=== PATIENT | female | born 1965 | race Caucasian/White ===

== ENCOUNTER → 2019-11-25 10:04 | Outpatient (BNVA) | payer MEDICARE, MEDICAID, SELFPAY | PROVIDERS: Family Provider Internal Medicine; PCP Internal Medicine; Visit Provider Specialist | DX: G30.9 Alzheimer's disease, unspecified (principal); F02.81 Dementia in other diseases classified elsewhere, unspecified severity, with behavioral disturbance; Q90.9 Down syndrome, unspecified | CPT/HCPCS: 99213 ==

== ENCOUNTER → 2020-03-25 10:19 | Outpatient (BNVA) | payer MEDICARE, MEDICAID, SELFPAY | PROVIDERS: Family Provider Internal Medicine; PCP Internal Medicine; Visit Provider Specialist | DX: G30.9 Alzheimer's disease, unspecified (principal); F02.80 Dementia in other diseases classified elsewhere, unspecified severity, without behavioral disturbance, psychotic disturbance, mood disturbance, and anxiety; F32.9 Major depressive disorder, single episode, unspecified | CPT/HCPCS: 99214 ==

== ENCOUNTER → 2020-04-20 16:17 | Outpatient (BNVA) | payer MEDICARE, MEDICAID, SELFPAY | PROVIDERS: Family Provider Internal Medicine; PCP Internal Medicine; Visit Provider Nurse Practitioner Family | DX: M79.643 Pain in unspecified hand (principal); S63.236A Subluxation of proximal interphalangeal joint of right little finger, initial encounter; X58.XXXA Exposure to other specified factors, initial encounter | CPT/HCPCS: 73130 ==

== ENCOUNTER 2020-06-22 18:56 | Emergency (ER) | payer MEDICARE, MEDICAID, SELFPAY ==
--- NOTE | 2020-06-22 19:02 | XRR_ITS ---
PROCEDURE INFORMATION: Exam: XR Chest, 1 View Exam date and time: 06/22/2020 7:32 PM Age: 54 years old Clinical indication: Other: Fussy-started after eating lunch; Patient HX: PT has down syndrome, unable to obtain history TECHNIQUE: Imaging protocol: XR of the chest Views: 1 view. COMPARISON: CR Chest 1 [place] [id number] 08/23/2018 1:41 PM FINDINGS: Lungs: Lungs are well aerated without a focal area of consolidation. Pleural space: Unremarkable. No pleural effusion. No pneumothorax. Heart/Mediastinum: The cardiac silhouette appears enlarged, some of which is magnification related to the AP projection. Bones/joints: Unremarkable. Other findings: Tracheostomy XR/XR chest 1V portable [id number] IMPRESSION: Lungs are well aerated without a focal area of consolidation.
[2020-06-22 19:13] VITALS: BP 103/61; PULSE 58; RESP 16; TEMP 36.6; O2SAT 98; BMI 37.8
--- NOTE | 2020-06-22 19:21 | CTR_ITS ---
PROCEDURE INFORMATION: Exam: CT Head Without Contrast Exam date and time: 06/22/2020 7:23 PM Age: 54 years old Clinical indication: Injury or trauma; Fall; Additional info: Fall and hit head TECHNIQUE: Imaging protocol: Computed tomography of the head without contrast. Radiation optimization: All CT scans at this facility use at least one of these dose optimization techniques: automated exposure control; mA and/or kV adjustment per patient size (includes targeted exams where dose is matched to clinical indication); or iterative reconstruction. 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 No hemorrhage or CT evidence of acute infarction is seen. Ventricles: Normal. No ventriculomegaly. Bones/joints: Unremarkable. No acute fracture. Sinuses: Left maxillary sinusitis is noted. Mastoid air cells: Visualized mastoid air cells are well aerated. Soft tissues: Unremarkable. CT/CT head wo con* [id number] IMPRESSION: No acute intracranial abnormality. Left maxillary sinusitis Radiation Dose CTDIVOL = (mGy): DLP = 707.05 (mGy-cm)
--- NOTE | 2020-06-22 19:21 | CTR_ITS ---
PROCEDURE INFORMATION: Exam: CT Cervical Spine Without Contrast Exam date and time: 06/22/2020 7:23 PM Age: 54 years old Clinical indication: Injury or trauma; Fall; Initial encounter; Blunt trauma; Prior surgery; Surgery type: Trach TECHNIQUE: Imaging protocol: Computed tomography images of the cervical spine without contrast. Radiation optimization: All CT scans at this facility use at least one of these dose optimization techniques: automated exposure control; mA and/or kV adjustment per patient size (includes targeted exams where dose is matched to clinical indication); or iterative reconstruction. COMPARISON: CT Cervical Spine wo* [id number] 01/01/2015 5:24 AM RADIATION DOSE METRICS: Total DLP (mGy-cm): 823.25 FINDINGS: Mild to moderate degenerative changes are observed in the cervical spine. Mild canal stenosis is present at C3-C4 and C4-C5 secondary to chronic changes. No cervical spine fracture. Partial bony fusion of C1 and C2 is appreciated. Spinal alignment is normal. A tracheostomy tube is present terminating above the level of the kellen CT/CT cervical spin wo con* [id number] IMPRESSION: No cervical spine fracture. Radiation Dose CTDIVOL = (mGy): DLP = 823.25 (mGy-cm)
--- NOTE | 2020-06-22 19:35 | ED_ITS ---
HPI - Fall General: Chief Complaint: Fall Stated Complaint: fell off bed Time Seen by Provider: 06/22/20 19:21 Source: family Mode of arrival: ambulatory Limitations: physical limitation History of Present Illness: HPI Narrative: 54-year-old female has a history of Down syndrome. Patient lives in a senior living and had a fall at 5:00. She states she hit her head. Patient has headache along with neck pain. She had no other injuries. Associated symptoms-after fall: Reports headache(s); Denies abdominal pain, chest pain or neck pain Review of Systems Const: Denies: fever(s), chills, body aches or change in appetite Eyes: Denies: blurry vision or eye discomfort ENMT: Denies: throat pain or dental pain Card: Denies: chest pain Resp: Denies: dyspnea GI: Denies: abdominal pain, nausea, vomiting or diarrhea : Denies: dysuria Musc: Denies: neck pain or back pain Skin/Breast: Denies: rash Neuro: Reports: headache(s) Psych: Denies: depression Toño/Lymph: Denies: easy bruising All/Imm: Denies: urticaria PFSH ED PFSH: Social History Smoking and tobacco status: never smoked Second hand smoke exposure: No Alcohol intake: never Physical Exam Const: COMMON NORMALS: no acute distress and healthy appearing HENMT: COMMON NORMALS: normocephalic HEAD & SCALP: normocephalic OTHER: contusion over left temporal region Eye: COMMON NORMALS: Equal, round and reactive pupils present and EOMs intact bilaterally PUPIL: Yes Equal, round and reactive pupils present Neck/C-Spine: COMMON NORMALS: full ROM and supple Chest: COMMONS NORMALS: normal inspection of the chest and normal palpation of entire chest wall Resp: COMMON NORMALS: normal respiratory effort, No retractions, No use of accessory muscles and clear to auscultation bilaterally AUSCULTATION: clear to auscultation bilaterally Cardio: COMMON NORMALS: regular rate, regular rhythm and No murmurs present (Cardio) RATE: regular rate RHYTHM: regular rhythm GI: COMMON NORMALS: Normal to inspection, nondistended, normoactive bowel sounds present, Soft to palpation, non-tender and no masses PALPATION: Yes Soft to palpation Extremity: COMMON NORMALS: normal to inspection and full ROM Neuro: COMMON NORMALS: moves all extremities and no focal motor deficits Psych: COMMON NORMALS: mental status grossly normal, Normal thought process present and cooperative THOUGHT PROCESS: Normal thought process present Skin: COMMON NORMALS: no rashes or lesions noted and no wounds GENERAL SKIN EXAM: no rashes or lesions noted Course Vital Signs: Vital signs: Vital Signs Temperature 97.8 F 06/22/20 19:13 Pulse Rate 58 L 06/22/20 19:13 Respiratory Rate 16 06/22/20 19:13 Blood Pressure 103/61 06/22/20 19:13 Pulse Oximetry 98 06/22/20 19:13 MDM - Fall MDM Narrative: Medical decision making narrative: Alla presents here with fall and closed head injury. Patient CT of her head and C-spine here negative. She is well-appearing here and is stable for discharge. Imaging Data^: CT Head: Radiologist's impression: [place] [address] CT Scan Report Signed Patient: Alla Milton Unit #: [id number] : 1965 Age/Sex: 54 / F ADM Date: 06/22/20 Loc: ER Room/Bed: Attending Dr: Ordering Provider/Ordering MD: Mina Baez Date of Service: 06/22/20 Procedure(s): CT head wo con* [id number] Accession Number(s): [id number] Report Number: [id number] PROCEDURE INFORMATION: Exam: CT Head Without Contrast Exam date and time: 06/22/2020 7:23 PM Age: 54 years old Clinical indication: Injury or trauma; Fall; Additional info: Fall and hit head TECHNIQUE: Imaging protocol: Computed tomography of the head without contrast. Radiation optimization: All CT scans at this facility use at least one of these dose optimization techniques: automated exposure control; mA and/or kV adjustment per patient size (includes targeted exams where dose is matched to clinical indication); or iterative reconstruction. 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 No hemorrhage or CT evidence of acute infarction is seen. Ventricles: Normal. No ventriculomegaly. Bones/joints: Unremarkable. No acute fracture. Sinuses: Left maxillary sinusitis is noted. Mastoid air cells: Visualized mastoid air cells are well aerated. Soft tissues: Unremarkable. CT/CT head wo con* [id number] IMPRESSION: No acute intracranial abnormality. Left maxillary sinusitis Radiation Dose CTDIVOL = (mGy): DLP = 707.05 (mGy-cm) Other CT: Radiologist's impression: [address] [address] [address] Scan Report Signed Patient: Alla Milton Unit #: [id number] : 1965 Age/Sex: 54 / F ADM Date: 06/22/20 Loc: ER Room/Bed: Attending Dr: Ordering Provider/Ordering MD: Patty Anders MD Date of Service: 06/22/20 Procedure(s): CT cervical spin wo con* [id number] Accession Number(s): [id number] Report Number: [id number] PROCEDURE INFORMATION: Exam: CT Cervical Spine Without Contrast Exam date and time: 06/22/2020 7:23 PM Age: 54 years old Clinical indication: Injury or trauma; Fall; Initial encounter; Blunt trauma; Prior surgery; Surgery type: Trach TECHNIQUE: Imaging protocol: Computed tomography images of the cervical spine without contrast. Radiation optimization: All CT scans at this facility use at least one of these dose optimization techniques: automated exposure control; mA and/or kV adjustment per patient size (includes targeted exams where dose is matched to clinical indication); or iterative reconstruction. COMPARISON: CT Cervical Spine wo* [id number] 01/01/2015 5:24 AM RADIATION DOSE METRICS: Total DLP (mGy-cm): 823.25 FINDINGS: Mild to moderate degenerative changes are observed in the cervical spine. Mild canal stenosis is present at C3-C4 and C4-C5 secondary to chronic changes. No cervical spine fracture. Partial bony fusion of C1 and C2 is appreciated. Spinal alignment is normal. A tracheostomy tube is present terminating above the level of the kellen CT/CT cervical spin wo con* [id number] IMPRESSION: No cervical spine fracture. Radiation Dose CTDIVOL = (mGy): DLP = 823.25 (mGy-cm) Discharge Plan Discharge Patient Disposition: Home Clinical Impression: CHI (closed head injury) Qualifiers: Encounter type: initial encounter Qualified Code(s): S09.90XA - Unspecified injury of head, initial encounter Fall Qualifiers: Encounter type: initial encounter Qualified Code(s): W19.XXXA - Unspecified fall, initial encounter Condition: Stable Prescriptions: No Action dextromethorphan-guaifenesin 10-100 mg/5 mL syrup 10 ml PO Q4H RF: 0 simethicone [Gas-X Extra Strength] 125 mg capsule 125 mg PO QID PRNRF: 0 artifi.tears(hypromellose)(PF) 0.3 % drops 1 drop ophthalmic (eye) QID PRNRF: 0 quetiapine [Seroquel] 25 mg tablet 25 mg PO TID PRNRF: 0 acetaminophen [Tylenol] 325 mg capsule 650 mg PO Q4H RF: 0 Pepto-Bismol 262 mg tablet 2 tab PO QID PRNRF: 0 loperamide 2 mg capsule 4 mg PO Q4H PRNRF: 0 triamcinolone acetonide 0.1 % cream 1 applic TOPICAL BID PRNRF: 0 hydrocortisone 2.5 % cream 1 applic TOPICAL BID PRNRF: 0 (DME) oxygen-air delivery systems Device See Rx Instructions .ROUTE .MEDSUPPLY Qty: 1 RF: 0 levothyroxine 112 mcg capsule 112 mcg PO QDAY RF: 0 allopurinol 100 mg tablet 200 mg PO QDAY RF: 0 omeprazole 40 mg capsule,delayed release(DR/EC) 40 mg PO QDAY RF: 0 fluticasone propionate [Flonase Allergy Relief] 50 mcg/actuation spray,suspension 2 spray INTRANASAL QDAY RF: 0 theophylline 300 mg capsule,extended release 24hr 300 mg PO Q24H RF: 0 atorvastatin 10 mg tablet 10 mg PO QDAY RF: 0 albuterol sulfate 2.5 mg /3 mL (0.083 %) solution for nebulization 2.5 mg INHALATION Q2H PRNRF: 0 trazodone 50 mg tablet 150 mg PO QDAY RF: 0 rivastigmine 4.6 mg/24 hr patch 24 hour 4.6 mg TRANSDERMA DAILY Qty: 30 RF: 5 citalopram 20 mg tablet 20 mg PO DAILY Qty: 30 RF: 5 Robitussin Cough-Chest Christopher DM 10-200 mg capsule 1 tab-cap PO Q8H PRNRF: 0 fluconazole 150 mg tablet 150 mg PO DAILY Qty: 2 RF: 0 (DME) cologard See Rx Instructions .Route .MEDSUPPLY Qty: 1 RF: 0 Discharge Orders: Discharge Order (Routine); Ordered 06/22/20 Ordered By: Patty Anders Referrals: Jas Vaca MD [Primary Care Provider] - 1-3 days Discharge Diet: Advance as tolerated Discharge Activity: Resume usual activity Patient Instructions: Minor Head Injury (ED) Coding Level of Care Code ED Curriculum Director for Nichelle Fwd Exam Comprehensive
[2020-06-22 20:11] VITALS: BP 128/70; PULSE 56; RESP 16; O2SAT 97
== END 2020-06-22 20:22 | disposition home or self-care (01) ==
PROVIDERS: Emergency Provider Emergency Medicine; PCP Internal Medicine
DX: S09.8XXA Other specified injuries of head, initial encounter (principal); W19.XXXA Unspecified fall, initial encounter
CPT/HCPCS: 12345; 70450; 71045; 72125; 99281; 99283

== ENCOUNTER 2020-07-15 08:55 | Outpatient (CLI) | payer MEDICARE, MEDICAID, SELFPAY ==
--- NOTE | 2020-07-15 09:00 | MM_ITS ---
WS: [id number] BILATERAL DIGITAL SCREENING MAMMOGRAPHY WITH CAD CLINICAL INFORMATION: screening HISTORY: Screening mammogram. No current complaints. COMPARISON: [id number] TECHNIQUE: Bilateral CC and MLO views. FINDINGS: Scattered fibroglandular densities bilaterally. No suspicious focal mass, asymmetry, calcifications, or architectural distortion. No evidence of malignancy. MM/[place] [id number] IMPRESSION: BI-RADS: 1-Negative FOLLOW UP: 1 Year Follow-up Recommend return to annual screening mammography.
== END 2020-07-15 08:56 | disposition home or self-care (01) ==
LOC: RADSHAW 09:02
PROVIDERS: PCP Internal Medicine; Visit Provider Internal Medicine
DX: Z12.31 Encounter for screening mammogram for malignant neoplasm of breast (principal)
CPT/HCPCS: 77067

== ENCOUNTER 2020-08-26 16:29 | Emergency (ER) | payer MEDICARE, MEDICAID, SELFPAY ==
[2020-08-26] VITALS (9 sets, daily range): BP systolic 100–120; BP diastolic 58–68; PULSE 50–80; RESP 16–22; TEMP 36.4; O2SAT 91–97; BMI 34.4
--- NOTE | 2020-08-26 16:53 | XR_ITS ---
WS: [id number] Exam: XR chest 1V portable [id number] Date/Time of Exam: 08/26/2020 4:53 PM Reason For Exam: hypoxia Comparison 06/22/2020. The lungs are fully expanded. Chronic interstitial changes are noted. No consolidating infiltrates. N o pleural effusions. Unremarkable cardiomediastinal structures. A tracheostomy tube is in place appea ring to be in appropriate position. Monitoring leads superimpose the chest. XR/XR chest 1V portable [id number] IMPRESSION: 1. No acute cardiopulmonary finding. No change.
--- NOTE | 2020-08-26 17:24 | ED_ITS ---
Documented by User: Khurram Sapp DO 08/27/20 09:50 HPI - General Adult General: Chief complaint: Shortness of Breath/Dyspnea Stated complaint: LOW O2 SATS Time Seen by Provider: 08/26/20 16:35 History of Present Illness: HPI narrative: 54-year-old female with a history of Down syndrome and lives in a [facility]dc. She was brought in with a complaint of cough and shortness of breath. EMS reports an O2 sat of 92% on room air in the field and improved to 100% with 4 L by nasal cannula nasal cannula was applied to the exterior of the tracheostomy. She had a tracheostomy placed when she was a child for some sort of upper airway obstruction that the mother cannot recall any specifics of. There are old notes in the chart that show the patient has a history of dementia and is seen Dr. Pulliam in the past. Patient hers elf denies chest pain nausea vomiting or diarrhea or abdominal pain. Onset (ago): hour(s) Severity: mild Relieving factors: none Exacerbating factors: none Associated symptoms: Reports cough, dyspnea and short of breath; Deny chest pain, decreased appetite, fevers/chills, nausea, vomiting or weakness Treatments prior to arrival: none Review of Systems Const: Denies: fever(s), chills or body aches ENMT: Denies: throat pain or ear or mastoid pain Card: Denies: chest pain Resp: Reports: dyspnea GI: Denies: nausea or vomiting : Denies: dysuria, urinary frequency or urinary urgency [facility] ED PFSH: Social History Smoking and tobacco status: never smoked Second hand smoke exposure: No Alcohol intake: never History of recent travel: No Physical Exam Const: COMMON NORMALS: no acute distress GENERAL APPEARANCE: cooperative and comfortable HENMT: COMMON NORMALS: normocephalic and atraumatic HEAD & SCALP: normocephalic and atraumatic Neck/C-Spine: COMMON NORMALS: no JVD Resp: COMMON NORMALS: normal respiratory effort, No retractions, No use of accessory muscles and clear to auscultation bilaterally AUSCULTATION: clear to auscultation bilaterally Cardio: COMMON NORMALS: no JVD, regular rate, regular rhythm and No murmurs present (Cardio) RATE: regular rate RHYTHM: regular rhythm GI: COMMON NORMALS: Soft to palpation and No hepatosplenomegaly present AUSCULTATION: Yes normoactive bowel sounds PALPATION: Yes Soft to palpation, No Tenderness to palpation present (GI), No Guarding due to palpation present (GI) and Yes No hepatosplenomegaly present Extremity: COMMON NORMALS: normal to inspection, capillary refill normal, no clubbing, cyanosis or edema, no calf tenderness and no pedal edema Skin: COMMON NORMALS: no rashes or lesions noted GENERAL SKIN EXAM: no rashes or lesions noted Course Vital Signs: Vital signs: Vital Signs Temperature 97.6 F 08/27/20 00:17 Pulse Rate 66 08/27/20 00:17 Respiratory Rate 16 08/27/20 00:17 Blood Pressure 109/57 08/27/20 00:17 Pulse Oximetry 91 08/27/20 00:17 MDM - General Adult MDM Narrative: Medical decision making narrative: Care turned over to Dr. Garber at change of shift see his notes for final diagnosis and disposition Lab Data: Labs: Lab Results 08/26/20 08/26/20 08/26/20 Range/Units 17:30 17:30 17:30 WBC 4.0 (4.0-10.0) 10^3/ uL RBC 3.82 L (4.1-5.3) 10^6/u L Hgb 13.5 (11.5-15.3) g/dL Hct 40.3 (37.0-47.0) % MCV 105.5 H (81-99) fL MCH 35.3 H (28.0-34.0) pg MCHC 33.5 (30.0-36.0) g/dL RDW 13.9 (12.1-15.1) % Plt Count 116 L (130-400) 10^3/c mm MPV 10.1 (7.4-10.4) fL Neut % (Auto) 67.6 % Lymph % (Auto) 20.7 % [place] % (Auto) 9.3 % Eos % (Auto) 0.8 % Baso % (Auto) 1.3 % Neut # (Auto) 2.69 (1.8-7.7) 10^3/u L Lymph # (Auto) 0.8 (0.8-4.8) 10^3/u L [place] # (Auto) 0.4 (0.2-0.9) 10^3/u L Eos # (Auto) 0.0 (0.0-0.8) 10^3/u L Baso # (Auto) 0.1 (0.0-0.1) 10^3/u L Nucleated RBC % (a uto) 0 % Nucleated RBCs # 0.0 /100WBC Fibrinogen 396 (174-498) mg/dL D-Dimer 1.12 H (0-0.59) ug/mIFE U Specimen Type Sample Site ABG pH (7.35-7.45) ABG pCO2 (35-45) mmHg ABG pO2 (80.0-100.0) mmH g ABG HCO3 (22-26) mmol/L ABG Base Excess (-2.0-2.0) mmol/ L Adal Test Hematocrit (37-47) % O2 Delivery Device FiO2 % Ic Designer Custom ID Sodium 138 (136-145) mmol/L Potassium 4.1 (3.5-5.1) mmol/L Chloride 101 (98-107) mmol/L Carbon Dioxide 30 H (22-29) mmol/L Anion Gap 11.1 (5-19) BUN 19 (6-20) mg/dL Creatinine 1.1 H (0.5-0.9) mg/dL GFR Calculation 52.2 L (90-130) mL/min Glucose 123 H (65-115) mg/dL Calculated Osmolal ity 290 (285-295) mOsm/k g Lactic Acid (0.5-2.2) mmol/L Calcium 9.4 (8.5-10.5) mg/dL Total Bilirubin 0.2 (0.15-1.2) mg/dL AST 25 (0-32) U/L ALT 19 (0-33) U/L Alkaline Phosphata se 108 H (35-105) IU/L Lactate Dehydrogen ase 190 (135-214) U/L C-Reactive Protein 6.8 H (0.0-4.9) mg/L NT-Pro-B Natriuret Pep (0-125) pg/mL Total Protein 6.9 (6.6-8.7) g/dL Albumin 3.8 (3.5-5.2) g/dL Globulin 3.1 (1.3-4.6) g/dL Procalcitonin 0.03 (0-0.5) ng/mL SARS-CoV-2 Ag (Rap id) (Negative) 08/26/20 08/26/20 08/26/20 Range/Units 17:30 17:30 17:30 WBC (4.0-10.0) 10^3/ uL RBC (4.1-5.3) 10^6/u L Hgb (11.5-15.3) g/dL Hct (37.0-47.0) % MCV (81-99) fL MCH (28.0-34.0) pg MCHC (30.0-36.0) g/dL RDW (12.1-15.1) % Plt Count (130-400) 10^3/c mm MPV (7.4-10.4) fL Neut % (Auto) % Lymph % (Auto) % [place] % (Auto) % Eos % (Auto) % Baso % (Auto) % Neut # (Auto) (1.8-7.7) 10^3/u L Lymph # (Auto) (0.8-4.8) 10^3/u L [place] # (Auto) (0.2-0.9) 10^3/u L Eos # (Auto) (0.0-0.8) 10^3/u L Baso # (Auto) (0.0-0.1) 10^3/u L Nucleated RBC % (a uto) % Nucleated RBCs # /100WBC Fibrinogen (174-498) mg/dL D-Dimer (0-0.59) ug/mIFE U Specimen Type Sample Site ABG pH (7.35-7.45) ABG pCO2 (35-45) mmHg ABG pO2 (80.0-100.0) mmH g ABG HCO3 (22-26) mmol/L ABG Base Excess (-2.0-2.0) mmol/ L Adal Test Hematocrit (37-47) % O2 Delivery Device FiO2 % Ic Designer Custom ID Sodium (136-145) mmol/L Potassium (3.5-5.1) mmol/L Chloride (98-107) mmol/L Carbon Dioxide (22-29) mmol/L Anion Gap (5-19) BUN (6-20) mg/dL Creatinine (0.5-0.9) mg/dL GFR Calculation (90-130) mL/min Glucose (65-115) mg/dL Calculated Osmolal ity (285-295) mOsm/k g Lactic Acid 0.8 (0.5-2.2) mmol/L Calcium (8.5-10.5) mg/dL Total Bilirubin (0.15-1.2) mg/dL AST (0-32) U/L ALT (0-33) U/L Alkaline Phosphata se (35-105) IU/L Lactate Dehydrogen ase (135-214) U/L C-Reactive Protein (0.0-4.9) mg/L NT-Pro-B Natriuret Pep 236 H (0-125) pg/mL Total Protein (6.6-8.7) g/dL Albumin (3.5-5.2) g/dL Globulin (1.3-4.6) g/dL Procalcitonin (0-0.5) ng/mL SARS-CoV-2 Ag (Rap id) Negative (Negative) 08/26/20 Range/Units 17:56 WBC (4.0-10.0) 10^3/ uL RBC (4.1-5.3) 10^6/u L Hgb (11.5-15.3) g/dL Hct (37.0-47.0) % MCV (81-99) fL MCH (28.0-34.0) pg MCHC (30.0-36.0) g/dL RDW (12.1-15.1) % Plt Count (130-400) 10^3/c mm MPV (7.4-10.4) fL Neut % (Auto) % Lymph % (Auto) % [place] % (Auto) % Eos % (Auto) % Baso % (Auto) % Neut # (Auto) (1.8-7.7) 10^3/u L Lymph # (Auto) (0.8-4.8) 10^3/u L [place] # (Auto) (0.2-0.9) 10^3/u L Eos # (Auto) (0.0-0.8) 10^3/u L Baso # (Auto) (0.0-0.1) 10^3/u L Nucleated RBC % (a uto) % Nucleated RBCs # /100WBC Fibrinogen (174-498) mg/dL D-Dimer (0-0.59) ug/mIFE U Specimen Type Arterial Sample Site Brachial, left ABG pH 7.46 H (7.35-7.45) ABG pCO2 42.0 (35-45) mmHg ABG pO2 64.2 L (80.0-100.0) mmH g ABG HCO3 29.5 H (22-26) mmol/L ABG Base Excess 5.0 H (-2.0-2.0) mmol/ L Adal Test N/a Hematocrit 41.8 (37-47) % O2 Delivery Device Room air FiO2 21.0 % Ic Designer Custom ID Amh Sodium (136-145) mmol/L Potassium (3.5-5.1) mmol/L Chloride (98-107) mmol/L Carbon Dioxide (22-29) mmol/L Anion Gap (5-19) BUN (6-20) mg/dL Creatinine (0.5-0.9) mg/dL GFR Calculation (90-130) mL/min Glucose (65-115) mg/dL Calculated Osmolal ity (285-295) mOsm/k g Lactic Acid (0.5-2.2) mmol/L Calcium (8.5-10.5) mg/dL Total Bilirubin (0.15-1.2) mg/dL AST (0-32) U/L ALT (0-33) U/L Alkaline Phosphata se (35-105) IU/L Lactate Dehydrogen ase (135-214) U/L C-Reactive Protein (0.0-4.9) mg/L NT-Pro-B Natriuret Pep (0-125) pg/mL Total Protein (6.6-8.7) g/dL Albumin (3.5-5.2) g/dL Globulin (1.3-4.6) g/dL Procalcitonin (0-0.5) ng/mL SARS-CoV-2 Ag (Rap id) (Negative) Discharge Plan Discharge Patient Disposition: Home Clinical Impression: Community acquired pneumonia Qualifiers: Laterality: unspecified laterality Qualified Code(s): J18.9 - Pneumonia, unspecified organism Condition: Stable Prescriptions: New Zithromax Z-Kamar 250 mg tablet See Rx Instructions .ROUTE .COMPLEX Qty: 6 RF: 0 Decadron 6 mg tablet 6 mg PO DAILY Qty: 10 RF: 0 cefdinir 300 mg capsule 300 mg PO Q12H 10 Days Qty: 20 RF: 0 No Action dextromethorphan-guaifenesin 10-100 mg/5 mL syrup 10 ml PO Q4H PRN (Reason: Cough) RF: 0 simethicone [Gas-X Extra Strength] 125 mg capsule 125 mg PO QID PRN (Reason: STOMACH ISSUES) RF: 0 artifi.tears(hypromellose)(PF) 0.3 % drops 1 drop ophthalmic (eye) QID PRN (Reason: Dry Eyes) RF: 0 quetiapine [Seroquel] 25 mg tablet 25 mg PO TID PRN (Reason: Anxiety) RF: 0 acetaminophen [Tylenol] 325 mg capsule 650 mg PO Q4H RF: 0 Pepto-Bismol 262 mg tablet 2 tab PO QID PRN (Reason: STOMACH ISSUES) RF: 0 loperamide 2 mg capsule 4 mg PO Q4H PRN (Reason: Diarrhea) RF: 0 triamcinolone acetonide 0.1 % cream 1 applic TOPICAL BID PRN (Reason: CUTS ABRASIONS) RF: 0 hydrocortisone 2.5 % cream 1 applic TOPICAL BID PRN (Reason: UNKNOWN) RF: 0 (DME) oxygen-air delivery systems Device See Rx Instructions .ROUTE .MEDSUPPLY Qty: 1 RF: 0 levothyroxine 112 mcg capsule 112 mcg PO QDAY RF: 0 allopurinol 100 mg tablet 200 mg PO DAILY RF: 0 omeprazole 40 mg capsule,delayed release(DR/EC) 40 mg PO QDAY RF: 0 fluticasone propionate [Flonase Allergy Relief] 50 mcg/actuation spray,suspension 2 spray INTRANASAL DAILY RF: 0 theophylline 300 mg capsule,extended release 24hr 300 mg PO DAILY RF: 0 atorvastatin 10 mg tablet 10 mg PO DAILY RF: 0 albuterol sulfate 2.5 mg /3 mL (0.083 %) solution for nebulization 2.5 mg INHALATION Q2H PRN (Reason: Shortness Of Breath) RF: 0 trazodone 50 mg tablet 150 mg PO DAILY RF: 0 rivastigmine 4.6 mg/24 hr patch 24 hour 4.6 mg TRANSDERMA DAILY Qty: 30 RF: 5 citalopram 20 mg tablet 20 mg PO DAILY Qty: 30 RF: 5 fluconazole 150 mg tablet 150 mg PO DAILY Qty: 2 RF: 0 (DME) cologard See Rx Instructions .Route .MEDSUPPLY Qty: 1 RF: 0 TobraDex 0.3-0.1 % ointment 1 applic ophthalmic (eye) TID 5 Days Qty: 3.5 RF: 0 ammonium lactate 12 % Lotion 1 applic TOPICAL BID RF: 0 CeraVe Psoriasis 2 % Cream See Rx Instructions .ROUTE .COMPLEX RF: 0 Antifungal (tolnaftate) 1 % Powder 1 applic TOPICAL DAILY RF: 0 CeraVe Cream See Rx Instructions .ROUTE .COMPLEX RF: 0 Discharge Orders: Discharge Order (Routine); Ordered 08/26/20 Ordered By: Юлия Mcintyre Referrals: Jas Vaca MD [Primary Care Provider] - 1-3 days Discharge Diet: Advance as tolerated Patient Instructions: Viral Pneumonia (ED) Activity Restrictions/Additional Instructions: Please return to the ER immediately for any of the signs or symptoms listed on your discharge instruction sheets, worsening/changing of your symptoms, you are not getting better as quickly as expected, or for ANY other cause or concerns. Take the medications as I have prescribed them. Return to the ER if your pulse oximetry falls below 90% on the oxygen that you are already utilizing. Discharge Date/Time: 08/27/20 00:15 Sign Out Sign Out Data: Patient Sign Out occurred on 08/26/20 at 18:21. Patient's care was discussed, and care was transferred from to Юлия Mcintyre. Coding Level of Care Code ED Interactive Media Marketing Strategist for Chg Fwd Exam Comprehensive Documented by User: Юлия Mcintyre 08/27/20 02:30 HPI - General Adult General: Chief complaint: Shortness of Breath/Dyspnea Stated complaint: LOW O2 SATS Time Seen by Provider: 08/26/20 16:35 PFSH ED PFS: Social History Smoking and tobacco status: never smoked Second hand smoke exposure: No Alcohol intake: never History of recent travel: No Course Vital Signs: Vital signs: Vital Signs Temperature 97.6 F 08/27/20 00:17 Pulse Rate 66 08/27/20 00:17 Respiratory Rate 16 08/27/20 00:17 Blood Pressure 109/57 08/27/20 00:17 Pulse Oximetry 91 08/27/20 00:17 MDM - General Adult MDM Narrative: Medical decision making narrative: 1949 -care turned over to me at change of shift from Dr. Sapp. Please see his note for his history, physical exam and medical decision-making notes. Upon my evaluation the patient has stable vital signs with a normal pulse ox on room air. She is in no distress. She has coarse breath sounds but otherwise unremarkable. D-dimer previously been ordered by Dr. Sapp and is positive so will have to CT her chest. Currently the chest x-ray is suggestive of a possible right lower lobe pneumonia but not definitive. 2327 -patient has mild pneumonitis findings on her CT of her chest but her chest x-ray is clear. She has no wheezing on exam and is in no distress. I reviewed the case in full with her mother by phone and she is agreeable to let her go back to the [facility] but we will place her on quarantine as a repeat Covid test, the PCR test which is more specific will be sent. Her rapid Covid was negative. On chest x-ray I thought there could be a hint of right lower lobe infiltrate but was not confident. I did start her on Rocephin and Zithromax and I will continue Omnicef and Zithromax at the [facility]. I will also keep her on Decadron. She uses oxygen at night there to her trach and we will have them continue this but continuously. Patient here on room air we will set anywhere from 98 to 91%. The patient's mother states to have the ability to monitor her pulse ox there and they will return with her if her pulse ox drops below 90%. This time the patient's vital signs are stable and she is in no acute distress. Lab Data: Attestation: I reviewed the patient's lab results. Labs: Lab Results 08/26/20 08/26/20 08/26/20 Range/Units 17:30 17:30 17:30 WBC 4.0 (4.0-10.0) 10^3/ uL RBC 3.82 L (4.1-5.3) 10^6/u L Hgb 13.5 (11.5-15.3) g/dL Hct 40.3 (37.0-47.0) % MCV 105.5 H (81-99) fL MCH 35.3 H (28.0-34.0) pg MCHC 33.5 (30.0-36.0) g/dL RDW 13.9 (12.1-15.1) % Plt Count 116 L (130-400) 10^3/c mm MPV 10.1 (7.4-10.4) fL Neut % (Auto) 67.6 % Lymph % (Auto) 20.7 % [place] % (Auto) 9.3 % Eos % (Auto) 0.8 % Baso % (Auto) 1.3 % Neut # (Auto) 2.69 (1.8-7.7) 10^3/u L Lymph # (Auto) 0.8 (0.8-4.8) 10^3/u L [place] # (Auto) 0.4 (0.2-0.9) 10^3/u L Eos # (Auto) 0.0 (0.0-0.8) 10^3/u L Baso # (Auto) 0.1 (0.0-0.1) 10^3/u L Nucleated RBC % (a uto) 0 % Nucleated RBCs # 0.0 /100WBC Fibrinogen 396 (174-498) mg/dL D-Dimer 1.12 H (0-0.59) ug/mIFE U Specimen Type Sample Site ABG pH (7.35-7.45) ABG pCO2 (35-45) mmHg ABG pO2 (80.0-100.0) mmH g ABG HCO3 (22-26) mmol/L ABG Base Excess (-2.0-2.0) mmol/ L Adal Test Hematocrit (37-47) % O2 Delivery Device FiO2 % Ic Designer Custom ID Sodium 138 (136-145) mmol/L Potassium 4.1 (3.5-5.1) mmol/L Chloride 101 (98-107) mmol/L Carbon Dioxide 30 H (22-29) mmol/L Anion Gap 11.1 (5-19) BUN 19 (6-20) mg/dL Creatinine 1.1 H (0.5-0.9) mg/dL GFR Calculation 52.2 L (90-130) mL/min Glucose 123 H (65-115) mg/dL Calculated Osmolal ity 290 (285-295) mOsm/k g Lactic Acid (0.5-2.2) mmol/L Calcium 9.4 (8.5-10.5) mg/dL Total Bilirubin 0.2 (0.15-1.2) mg/dL AST 25 (0-32) U/L ALT 19 (0-33) U/L Alkaline Phosphata se 108 H (35-105) IU/L Lactate Dehydrogen ase 190 (135-214) U/L C-Reactive Protein 6.8 H (0.0-4.9) mg/L NT-Pro-B Natriuret Pep (0-125) pg/mL Total Protein 6.9 (6.6-8.7) g/dL Albumin 3.8 (3.5-5.2) g/dL Globulin 3.1 (1.3-4.6) g/dL Procalcitonin 0.03 (0-0.5) ng/mL SARS-CoV-2 Ag (Rap id) (Negative) 08/26/20 08/26/20 08/26/20 Range/Units 17:30 17:30 17:30 WBC (4.0-10.0) 10^3/ uL RBC (4.1-5.3) 10^6/u L Hgb (11.5-15.3) g/dL Hct (37.0-47.0) % MCV (81-99) fL MCH (28.0-34.0) pg MCHC (30.0-36.0) g/dL RDW (12.1-15.1) % Plt Count (130-400) 10^3/c mm MPV (7.4-10.4) fL Neut % (Auto) % Lymph % (Auto) % [place] % (Auto) % Eos % (Auto) % Baso % (Auto) % Neut # (Auto) (1.8-7.7) 10^3/u L Lymph # (Auto) (0.8-4.8) 10^3/u L [place] # (Auto) (0.2-0.9) 10^3/u L Eos # (Auto) (0.0-0.8) 10^3/u L Baso # (Auto) (0.0-0.1) 10^3/u L Nucleated RBC % (a uto) % Nucleated RBCs # /100WBC Fibrinogen (174-498) mg/dL D-Dimer (0-0.59) ug/mIFE U Specimen Type Sample Site ABG pH (7.35-7.45) ABG pCO2 (35-45) mmHg ABG pO2 (80.0-100.0) mmH g ABG HCO3 (22-26) mmol/L ABG Base Excess (-2.0-2.0) mmol/ L Adal Test Hematocrit (37-47) % O2 Delivery Device FiO2 % Ic Designer Custom ID Sodium (136-145) mmol/L Potassium (3.5-5.1) mmol/L Chloride (98-107) mmol/L Carbon Dioxide (22-29) mmol/L Anion Gap (5-19) BUN (6-20) mg/dL Creatinine (0.5-0.9) mg/dL GFR Calculation (90-130) mL/min Glucose (65-115) mg/dL Calculated Osmolal ity (285-295) mOsm/k g Lactic Acid 0.8 (0.5-2.2) mmol/L Calcium (8.5-10.5) mg/dL Total Bilirubin (0.15-1.2) mg/dL AST (0-32) U/L ALT (0-33) U/L Alkaline Phosphata se (35-105) IU/L Lactate Dehydrogen ase (135-214) U/L C-Reactive Protein (0.0-4.9) mg/L NT-Pro-B Natriuret Pep 236 H (0-125) pg/mL Total Protein (6.6-8.7) g/dL Albumin (3.5-5.2) g/dL Globulin (1.3-4.6) g/dL Procalcitonin (0-0.5) ng/mL SARS-CoV-2 Ag (Rap id) Negative (Negative) 08/26/20 Range/Units 17:56 WBC (4.0-10.0) 10^3/ uL RBC (4.1-5.3) 10^6/u L Hgb (11.5-15.3) g/dL Hct (37.0-47.0) % MCV (81-99) fL MCH (28.0-34.0) pg MCHC (30.0-36.0) g/dL RDW (12.1-15.1) % Plt Count (130-400) 10^3/c mm MPV (7.4-10.4) fL Neut % (Auto) % Lymph % (Auto) % [place] % (Auto) % Eos % (Auto) % Baso % (Auto) % Neut # (Auto) (1.8-7.7) 10^3/u L Lymph # (Auto) (0.8-4.8) 10^3/u L [place] # (Auto) (0.2-0.9) 10^3/u L Eos # (Auto) (0.0-0.8) 10^3/u L Baso # (Auto) (0.0-0.1) 10^3/u L Nucleated RBC % (a uto) % Nucleated RBCs # /100WBC Fibrinogen (174-498) mg/dL D-Dimer (0-0.59) ug/mIFE U Specimen Type Arterial Sample Site Brachial, left ABG pH 7.46 H (7.35-7.45) ABG pCO2 42.0 (35-45) mmHg ABG pO2 64.2 L (80.0-100.0) mmH g ABG HCO3 29.5 H (22-26) mmol/L ABG Base Excess 5.0 H (-2.0-2.0) mmol/ L Adal Test N/a Hematocrit 41.8 (37-47) % O2 Delivery Device Room air FiO2 21.0 % Ic Designer Custom ID Amh Sodium (136-145) mmol/L Potassium (3.5-5.1) mmol/L Chloride (98-107) mmol/L Carbon Dioxide (22-29) mmol/L Anion Gap (5-19) BUN (6-20) mg/dL Creatinine (0.5-0.9) mg/dL GFR Calculation (90-130) mL/min Glucose (65-115) mg/dL Calculated Osmolal ity (285-295) mOsm/k g Lactic Acid (0.5-2.2) mmol/L Calcium (8.5-10.5) mg/dL Total Bilirubin (0.15-1.2) mg/dL AST (0-32) U/L ALT (0-33) U/L Alkaline Phosphata se (35-105) IU/L Lactate Dehydrogen ase (135-214) U/L C-Reactive Protein (0.0-4.9) mg/L NT-Pro-B Natriuret Pep (0-125) pg/mL Total Protein (6.6-8.7) g/dL Albumin (3.5-5.2) g/dL Globulin (1.3-4.6) g/dL Procalcitonin (0-0.5) ng/mL SARS-CoV-2 Ag (Rap id) (Negative) Imaging Data^: CXR: Attestation: I personally reviewed and interpreted this imaging study as follows: My impression: Possible right lower lobe infiltrate. Discharge Plan Discharge Patient Disposition: Home Clinical Impression: Community acquired pneumonia Qualifiers: Laterality: unspecified laterality Qualified Code(s): J18.9 - Pneumonia, u nspecified organism Condition: Stable Prescriptions: New Zithromax Z-Kamar 250 mg tablet See Rx Instructions .ROUTE .COMPLEX Qty: 6 RF: 0 Decadron 6 mg tablet 6 mg PO DAILY Qty: 10 RF: 0 cefdinir 300 mg capsule 300 mg PO Q12H 10 Days Qty: 20 RF: 0 No Action dextromethorphan-guaifenesin 10-100 mg/5 mL syrup 10 ml PO Q4H PRN (Reason: Cough) RF: 0 simethicone [Gas-X Extra Strength] 125 mg capsule 125 mg PO QID PRN (Reason: STOMACH ISSUES) RF: 0 artifi.tears(hypromellose)(PF) 0.3 % drops 1 drop ophthalmic (eye) QID PRN (Reason: Dry Eyes) RF: 0 quetiapine [Seroquel] 25 mg tablet 25 mg PO TID PRN (Reason: Anxiety) RF: 0 acetaminophen [Tylenol] 325 mg capsule 650 mg PO Q4H RF: 0 Pepto-Bismol 262 mg tablet 2 tab PO QID PRN (Reason: STOMACH ISSUES) RF: 0 loperamide 2 mg capsule 4 mg PO Q4H PRN (Reason: Diarrhea) RF: 0 triamcinolone acetonide 0.1 % cream 1 applic TOPICAL BID PRN (Reason: CUTS ABRASIONS) RF: 0 hydrocortisone 2.5 % cream 1 applic TOPICAL BID PRN (Reason: UNKNOWN) RF: 0 (DME) oxygen-air delivery systems Device See Rx Instructions .ROUTE .MEDSUPPLY Qty: 1 RF: 0 levothyroxine 112 mcg capsule 112 mcg PO QDAY RF: 0 allopurinol 100 mg tablet 200 mg PO DAILY RF: 0 omeprazole 40 mg capsule,delayed release(DR/EC) 40 mg PO QDAY RF: 0 fluticasone propionate [Flonase Allergy Relief] 50 mcg/actuation spray,suspension 2 spray INTRANASAL DAILY RF: 0 theophylline 300 mg capsule,extended release 24hr 300 mg PO DAILY RF: 0 atorvastatin 10 mg tablet 10 mg PO DAILY RF: 0 albuterol sulfate 2.5 mg /3 mL (0.083 %) solution for nebulization 2.5 mg INHALATION Q2H PRN (Reason: Shortness Of Breath) RF: 0 trazodone 50 mg tablet 150 mg PO DAILY RF: 0 rivastigmine 4.6 mg/24 hr patch 24 hour 4.6 mg TRANSDERMA DAILY Qty: 30 RF: 5 citalopram 20 mg tablet 20 mg PO DAILY Qty: 30 RF: 5 fluconazole 150 mg tablet 150 mg PO DAILY Qty: 2 RF: 0 (DME) cologard See Rx Instructions .Route .MEDSUPPLY Qty: 1 RF: 0 TobraDex 0.3-0.1 % ointment 1 applic ophthalmic (eye) TID 5 Days Qty: 3.5 RF: 0 ammonium lactate 12 % Lotion 1 applic TOPICAL BID RF: 0 CeraVe Psoriasis 2 % Cream See Rx Instructions .ROUTE .COMPLEX RF: 0 Antifungal (tolnaftate) 1 % Powder 1 applic TOPICAL DAILY RF: 0 CeraVe Cream See Rx Instructions .ROUTE .COMPLEX RF: 0 Discharge Orders: Discharge Order (Routine); Ordered 08/26/20 Ordered By: Юлия Mcintyre Referrals: Jas Vaca MD [Primary Care Provider] - 1-3 days Discharge Diet: Advance as tolerated Patient Instructions: Viral Pneumonia (ED) Activity Restrictions/Additional Instructions: Please return to the ER immediately for any of the signs or symptoms listed on your discharge instruction sheets, worsening/changing of your symptoms, you are not getting better as quickly as expected, or for ANY other cause or concerns. Take the medications as I have prescribed them. Return to the ER if your pulse oximetry falls below 90% on the oxygen that you are already utilizing. Discharge Date/Time: 08/27/20 00:15 Sign Out Sign Out Data: Patient Sign Out occurred on 08/26/20 at 18:21. Patient's care was discussed, and care was transferred from to Юлия Mcintyre. 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
[2020-08-26 17:44] LABS: Basophils # 0.1 10^3/uL (0.0-0.1); Basophils % 1.3 %; Eosinophils % 0.8 %; Hematocrit 40.3 % (37.0-47.0); Hemoglobin 13.5 g/dL (11.5-15.3); Lymphocytes # 0.8 10^3/uL (0.8-4.8); Lymphocytes % 20.7 %; Mean Corpuscular HGB Conc 33.5 g/dL (30.0-36.0); Mean Corpuscular Hemoglobin 35.3 pg (28.0-34.0); Mean Corpuscular Volume 105.5 fL (81-99); Mean Platelet Volume 10.1 fL (7.4-10.4); Monocytes # 0.4 10^3/uL (0.2-0.9); Monocytes % 9.3 %; Neutrophils # 2.69 10^3/uL (1.8-7.7); Neutrophils % 67.6 %; Nucleated Red Blood Cells % 0 %; Platelet Count 116 10^3/cmm (130-400); Red Blood Count 3.82 10^6/uL (4.1-5.3); Red Cell Distribution Width 13.9 % (12.1-15.1)
[2020-08-26 18:04] LABS: Lactic Sepsis W/Reflex 0.8 mmol/L (0.5-2.2)
[2020-08-26 18:09] LABS: ABG PH Result 7.46 (7.35-7.45); Arterial Blood Gas Hematocrit 41.8 % (37-47); Blood Gas Operator Identificat AMH; Blood Gas Sample Site Brachial, left; Blood Gas Sample Type Arterial; HCO3 ABG 29.5 mmol/L (22-26); Oxygen Device ROOM AIR; PO2 ABG 64.2 mmHg (80.0-100.0)
[2020-08-26 18:16] LABS: Procalcitonin 0.03 ng/mL (0-0.5)
[2020-08-26 18:25] LABS: SARS Covid-2 Antigen Negative (Negative)
[2020-08-26 18:27] LABS: Alanine Aminotransferase 19 U/L (0-33); Albumin Level 3.8 g/dL (3.5-5.2); Alkaline Phosphatase 108 IU/L (35-105); Anion Gap 11.1 (5-19); Aspartate Amino Transferase 25 U/L (0-32); Blood Urea Nitrogen 19 mg/dL (6-20); C Reactive Protein 6.8 mg/L (0.0-4.9); Calcium 9.4 mg/dL (8.5-10.5); Carbon Dioxide 30 mmol/L (22-29); Chloride 101 mmol/L (98-107); Globulin 3.1 g/dL (1.3-4.6); Glomerular Filtration Rate 52.2 mL/min (90-130); Glucose 123 mg/dL (65-115); Lactate Dehydrogenase 190 U/L (135-214); Osmolality Calculated 290 mOsm/kg (285-295); Potassium 4.1 mmol/L (3.5-5.1); Sodium 138 mmol/L (136-145); Total Bilirubin 0.2 mg/dL (0.15-1.2); Total Protein 6.9 g/dL (6.6-8.7)
[2020-08-26 18:31] LABS: Fibrinogen 396 mg/dL (174-498)
[2020-08-26 18:34] LABS: D Dimer 1.12 ug/mIFEU (0-0.59)
--- NOTE | 2020-08-26 18:44 | CTR_ITS ---
PROCEDURE INFORMATION: Exam: CT Angiography Chest With Contrast Exam date and time: 08/26/2020 7:05 PM Age: 54 years old Clinical indication: Abnormal findings; Abnormal diagnostic tests; Elevated d-dimer; Shortness of breath; Prior surgery; Surgery type: Trach; Additional info: Shortness of breath, positive d-dimer TECHNIQUE: Imaging protocol: Computed tomographic angiography of the chest with intravenous contrast. 3D rendering (Not supervised by radiologist): MIP and/or 3D reconstructed images were created by the technologist. Radiation optimization: All CT scans at this facility use at least one of these dose optimization techniques: automated exposure control; mA and/or kV adjustment per patient size (includes targeted exams where dose is matched to clinical indication); or iterative reconstruction. Contrast material: OMNI 350; Contrast volume: 76 ml; Contrast route: INTRAVENOUS (IV); COMPARISON: CR XR chest 1V portable [id number] 08/26/2020 4:53 PM RADIATION DOSE METRICS: Total DLP (mGy-cm): 597.37 FINDINGS: Tubes, catheters and devices: Tracheostomy tube in place. Pulmonary arteries: No pulmonary embolus or aortic dissection. Aorta: Unremarkable. No aortic aneurysm. No aortic dissection. Lungs: Mild groundglass opacities and/or interstitial opacities consistent with mild allergic pneumonitis, infectious pneumonitis, atypical pulmonary edema and/or volume overload. Pleural space: Unremarkable. No pneumothorax. No pleural effusion. Heart: Unremarkable. No cardiomegaly. No pericardial effusion. Lymph nodes: Unremarkable. No enlarged lymph nodes. Gallbladder and bile ducts: Surgical clips in the gallbladder fossa consistent with cholecystectomy. Bones/joints: Mild thoracic spondylosis. Soft tissues: Unremarkable. CT/CT angio chest [facility], [place] [address] IMPRESSION: 1. No pulmonary embolus or aortic dissection. 2. Mild groundglass opacities and/or interstitial opacities consistent with mild allergic pneumonitis, infectious pneumonitis, atypical pulmonary edema and/or volume overload. Radiation Dose CTDIVOL = (mGy): DLP = 597.37 (mGy-cm)
--- NOTE | 2020-08-26 19:05 | PC.NURSE ---
report received from KARL REDDY and care transferred to VIVIANE REDDY
[2020-08-26] MEDS: cefTRIAXone 1,000 MG in sodium chloride 0.9% (plus) 50 ML 100 MG IV (20:18)
[2020-08-26] MEDS: azithromycin 500 MG in sodium chloride 0.9% 250 ML 250 MG IV (20:55)
[2020-08-26] MEDS: iohexol 350 mg/mL 100 mL Btl IV (21:05)
[2020-08-26 22:57] LABS: NT Pro B Type Natriuretic Pept 236 pg/mL (0-125)
--- NOTE | 2020-08-26 23:39 | PC.NURSE ---
Call to Carly at [place], pt being d/c. Carly stated she will arrange for ride and request we review d/c instructions with who picks up pt. call [phone]
[2020-08-27 00:17] VITALS: BP 109/57; PULSE 66; RESP 16; TEMP 36.4; O2SAT 91
[2020-08-27 14:08] LABS: Coronavirus Lab Test PTC Negative
--- NOTE | 2020-08-27 16:36 | PC.NURSE ---
this nurse called [facility] and spoke with BARRY Carrollretail sales manager-negative COVID 19 results conveyed to retail sales manager.
== END 2020-08-27 00:15 | disposition home or self-care (01) ==
PROVIDERS: Family Medicine; Emergency Provider Emergency Medicine; PCP Internal Medicine
DX: J18.9 Pneumonia, unspecified organism (principal)
CPT/HCPCS: 12345; 36600; 71045; 71275; 80053; 82803; 83605; 83615; 83880; 84145; 85025; 85378; 85384; 86140; 87426; 87635; 96365; 96367; 99284; J0456; J0696; J7050; Q9967

== ENCOUNTER → 2020-09-04 13:42 | Outpatient (BNVA) | payer MEDICARE, MEDICAID, SELFPAY | PROVIDERS: PCP Internal Medicine; Visit Provider Nurse Practitioner Women's Health | DX: Z01.419 Encounter for gynecological examination (general) (routine) without abnormal findings (principal) | CPT/HCPCS: 88175 ==

== ENCOUNTER 2020-09-10 17:25 | Emergency (ER) | payer MEDICARE, MEDICAID, SELFPAY ==
--- NOTE | 2020-09-10 17:45 | USCV_ITS ---
Alla Milton Age: 54 Gender: F : 1965 Exam Date: 09/10/2020 18:01 Ordering Phys: Patty Anders MD Technologist: Paddy Morrison [place] [facility] [place]: RT LEG SWELLING HISTORY: Lower extremity swelling. PROCEDURES: Venous duplex imaging was performed in only the right lower extremity. The following venous structures were evaluated: common femoral vein, profunda vein, proximal portion of the greater saphenous vein, superficial femoral vein, and the popliteal vein. In addition, the posterior tibial and peroneal trunk were evaluated. FINDINGS: Normal 2-D Doppler and augmentation and compressibility throughout the lower extremity venous structures. Additional imaging through the proximal calf veins also reveals no thrombus. Limited evaluation of the greater saphenous vein is patent with no thrombus.. CONCLUSIONS No evidence of right lower extremity DVT. Jorje Curry MD (Electronically Signed) Final Date: 11 September 2020 12:28 S
[2020-09-10 17:55] VITALS: BP 93/59; PULSE 89; RESP 20; TEMP 36.7; O2SAT 96; BMI 33.2
--- NOTE | 2020-09-11 09:56 | XR_ITS ---
WS: [id number] Right hip, AP and frog leg views, 09/11/2020 Clinical Data: S79.929A - Unspecified injury of unspecified thigh, initial encounter Comparison: None. Findings: No fractures or dislocations are seen. The hip joint is intact. The soft tissues are not remarkable. The adjacent pelvis is normal.
--- NOTE | 2020-09-11 09:56 | XR_ITS ---
WS: [id number] Right knee, 3 views, 09/11/2020 Clinical Data: S79.929A - Unspecified injury of unspecified thigh, initial encounter Comparison: None. Findings: No fractures or dislocations are seen. The joint spaces are normal. The patella is intact. The soft t issues are unremarkable. There are small spurs of the medial and lateral femoral condyles. There is a posterior superior spur of the patella.
== END 2020-09-10 19:56 | disposition home or self-care (01) ==
PROVIDERS: Emergency Provider Family Medicine; PCP Internal Medicine
DX: Z53.21 Procedure and treatment not carried out due to patient leaving prior to being seen by health care provider (principal); M79.89 Other specified soft tissue disorders
CPT/HCPCS: 93971; 99281

== ENCOUNTER 2020-09-11 09:51 | Outpatient (CLI) | payer MEDICARE, MEDICAID, SELFPAY ==
--- NOTE | 2020-09-11 10:43 | XR_ITS ---
WS: [id number] Right hip, AP and frog leg views, 09/11/2020 Clinical Data: S79.929A - Unspecified injury of unspecified thigh, initial encounter Comparison: None. Findings: No fractures or dislocations are seen. The hip joint is intact. The soft tissues are not remarkable. The adjacent pelvis is normal. XR/XR hip RT 2-3V wo/w pel* [id number] Impression: Negative right hip.
--- NOTE | 2020-09-11 10:43 | XR_ITS ---
WS: [id number] Right knee, 3 views, 09/11/2020 Clinical Data: S79.929A - Unspecified injury of unspecified thigh, initial encounter Comparison: None. Findings: No fractures or dislocations are seen. The joint spaces are normal. The patella is intact. The soft t issues are unremarkable. There are small spurs of the medial and lateral femoral condyles. There is a posterior superior spur of the patella. XR/XR knee RT 3V* [id number] Impression: Osteoarthritis of the right knee.
== END 2020-09-11 09:52 | disposition home or self-care (01) ==
PROVIDERS: PCP Internal Medicine; Visit Provider Nurse Practitioner Family
DX: S79.929A Unspecified injury of unspecified thigh, initial encounter (principal); S89.90XA Unspecified injury of unspecified lower leg, initial encounter; X58.XXXA Exposure to other specified factors, initial encounter; M17.11 Unilateral primary osteoarthritis, right knee
CPT/HCPCS: 73502; 73562

== ENCOUNTER 2020-12-31 07:37 | Emergency (ER) | payer MEDICARE, MEDICAID, SELFPAY ==
--- NOTE | 2020-12-31 07:39 | W.ED.DIZZY ---
HPI - Dizziness General: Chief Complaint: Dizziness Stated Complaint: DIZZINESS Time Seen by Provider: 12/31/20 07:38 Source: patient and other (caregiver) Mode of arrival: ambulatory Limitations: no limitations History of Present Illness: HPI Narrative: Patient is a 55-year-old female with a history of trisomy 21 and dementia here with her caregiver for complaints of an episode of dizziness that happened this morning. Caregiver states when patient was getting out of bed and went from a lying to standing position she became very dizzy and fell backwards onto the bed. She states dizziness persisted which is what prompted them to come to the ED for evaluation. Caregiver does tell me patient does have a history of previous episodes of dizziness with syncope. She states caregivers during the help desk associate noted patient had complained of a headache last night. No new medication changes. Patient no longer complains of a headache. She tells me dizziness has improved since arrival. Of note patient did receive a second COVID vaccination 2 days ago. Denies chest pain/SOB. No history of cardiac arrhythmias. Caregiver states she has baseline bradycardic. MD elicited complaint: dizziness Onset (ago): hour(s) Context: change in body position History of similar symptoms: Yes Exacerbating factors: change in body position Associated symptoms: Reports headache(s) (last night); Denies chest pain, chills, malaise, nausea, nasal congestion, palpitations, syncope, tinnitus or vomiting Associated neuro symptoms: Deny confusion or numbness in extremities Stroke scale total: 0 Review of Systems Const: Denies: fever(s), chills, body aches, fatigue or malaise Eyes: Denies: change in vision, blurry vision, photophobia, floaters or seeing flashes ENMT: Denies: odynophagia, ear or mastoid pain, tinnitus, nasal discharge or nasal congestion Card: Reports: dyspnea on exertion (chronic); Denies: chest pain, palpitations, irregular heart rhythm, edema, lightheadedness, syncope, pre-syncope or orthopnea Resp: Denies: dyspnea, productive cough, non-productive cough, wheezing, pain on inspiration, hemoptysis or chest congestion GI: Denies: abdominal pain, nausea, vomiting, heartburn or diarrhea : Denies: flank pain or dysuria Musc: Reports: other (caregiver reports she thinks pts hands are swollen); Denies: neck pain, back pain, extremity pain, extremity swelling, joint pain or joint swelling Skin/Breast: Denies: rash Neuro: Reports: headache(s) (last night) and dizziness; Denies: numbness in extremities, weakness in extremities, sensory changes, lack of coordination, difficulty walking, frequent falls, confusion, Slurred speech present or seizure-like activity [facility] ED PFSH: Medical History Coronary artery disease Stroke Surgical History Hx of cholecystectomy (~2011) Hx of myringotomy (~02/24/16) with tube placement Hx of tracheostomy (~1987) Hx of tubal ligation (~1999) Family History Other Unknown family medical history Social History Smoking and tobacco status: never smoked Second hand smoke exposure: No Alcohol intake: never History of recent travel: No Additional social history: - Tobacco use: Never Alcohol use: Never Drug use: Never Physical Exam Const: COMMON NORMALS: no acute distress, alert and well nourished EXAM LIMITATIONS: other limitations (mental disability-trisomy 21) GENERAL APPEARANCE: cooperative ORIENTATION/CONSCIOUSNESS: Yes awake and Yes oriented to person OTHER: normal mental status per caregiver HENMT: COMMON NORMALS: normocephalic and atraumatic HEAD & SCALP: normocephalic and atraumatic Eye: COMMON NORMALS: Equal, round and reactive pupils present and EOMs intact bilaterally GENERAL EYE: appearance normal, both eyes and all related structures PUPIL: Yes Equal, round and reactive pupils present OTHER: no nystagmus Neck/C-Spine: COMMON NORMALS: full ROM, no lymphadenopathy, supple and no meningeal signs Chest: COMMONS NORMALS: normal inspection of the chest Resp: COMMON NORMALS: normal respiratory effort and clear to auscultation bilaterally EFFORT & INSPECTION: Yes other (pt with trach) AUSCULTATION: clear to auscultation bilaterally Cardio: COMMON NORMALS: regular rhythm RATE: bradycardic (55-60s) RHYTHM: regular rhythm GI: COMMON NORMALS: Normal to inspection, nondistended, normoactive bowel sounds present, Soft to palpation, non-tender, No hepatosplenomegaly present and no masses PALPATION: Yes Soft to palpation and Yes No hepatosplenomegaly present : COMMON NORMALS: Yes no CVA tenderness BLADDER/KIDNEY EXAM: Yes no CVA tenderness Back/Pelvis: COMMON NORMALS: no CVA tenderness and thoracic and lumbar spine normal to inspection Extremity: COMMON NORMALS: normal to inspection and full ROM GENERAL: Yes normal exam except as noted Neuro: SHIRA COMA SCALE: document GCS findings Shira coma scale eye opening: Spontaneous Shira coma scale verbal response: Orientated Fenton coma scale motor response: Obey commands Shira coma scale total score: 15 COMMON NORMALS: moves all extremities, no focal motor deficits, no sensory deficits noted and gait normal SENSORIUM/ORIENTATION: Yes alert and Yes oriented to person MENINGEAL SIGNS: Yes no meningeal signs SPEECH: speech normal GAIT: Yes Normal gait present Skin: COMMON NORMALS: no rashes or lesions noted GENERAL SKIN EXAM: no rashes or lesions noted Course Vital Signs: Vital signs: Vital Signs Temperature 98.6 F 12/31/20 07:45 Pulse Rate 60 12/31/20 09:00 Respiratory Rate 15 12/31/20 09:00 Blood Pressure 105/71 12/31/20 09:00 Pulse Oximetry 92 12/31/20 09:00 MDM - Dizziness MDM Narrative: Medical decision making narrative: Patient's dizziness had improved upon arrival. She did have positive orthostatic hypotension. She is on several medications that could cause this mainly the rivastigmine and citalopram although the rivastigmine patch does have a smaller side effect profile than the oral formulation. I did elect to go ahead and CT her given her history of a headache last night prior to bed and the dizziness that she was experiencing this morning. There were no acute findings on her head CT. Patient does have a remote large left frontal lobe infarct. The remainder of patient's labs overall look okay. BNP ordered due to the complaint of hand swelling. This was elevated at 718. Her CXR does not show cardiomegaly or any pulmonary congestion. I would not start patient on any medications at this time-especially since treatment would involve a diuretic which would worsen her orthostatic hypotension. Patient was able to get out of bed and ambulate to the bathroom without difficulty. I have no suspicion at this time for a posterior circulation CVA. Discussed the rule of fives when going from a lying to seated to seated to standing position. Discussed follow-up with Dr. Vaca or Dr. Pulliam to see if any medication changes might be appropriate if patient symptoms persist. Return to ED precautions given. Lab Data: Labs: Lab Results 12/31/20 12/31/20 12/31/20 Range/Units 07:25 07:25 07:25 WBC 4.0 (4.0-10.0) 10^3/ uL RBC 4.14 (4.1-5.3) 10^6/u L Hgb 14.7 (11.5-15.3) g/dL Hct 44.1 (37.0-47.0) % MCV 106.5 H (81-99) fL MCH 35.5 H (28.0-34.0) pg MCHC 33.3 (30.0-36.0) g/dL RDW 14.0 (12.1-15.1) % Plt Count 113 L (130-400) 10^3/c mm MPV 11.1 H (7.4-10.4) fL Neut % (Auto) 79.9 % Lymph % (Auto) 10.9 % Tripp % (Auto) 6.6 % Eos % (Auto) 0.8 % Baso % (Auto) 1.3 % Neut # (Auto) 3.17 (1.8-7.7) 10^3/u L Lymph # (Auto) 0.4 L (0.8-4.8) 10^3/u L Tripp # (Auto) 0.3 (0.2-0.9) 10^3/u L Eos # (Auto) 0.0 (0.0-0.8) 10^3/u L Baso # (Auto) 0.1 (0.0-0.1) 10^3/u L Nucleated RBC % (a uto) 0 % Nucleated RBCs # 0.0 /100WBC Sodium 134 L (136-145) mmol/L Potassium 4.1 (3.5-5.1) mmol/L Chloride 100 (98-107) mmol/L Carbon Dioxide 29 (22-29) mmol/L Anion Gap 9.1 (5-19) BUN 18 (6-20) mg/dL Creatinine 1.1 H (0.5-0.9) mg/dL GFR Calculation 52.0 L (90-130) mL/min Glucose 89 (65-115) mg/dL Calculated Osmolal ity 279 L (285-295) mOsm/k g Calcium 9.5 (8.5-10.5) mg/dL Total Bilirubin 0.4 (0.15-1.2) mg/dL AST 24 (0-32) U/L ALT 15 (0-33) U/L Alkaline Phosphata se 104 (35-105) IU/L NT-Pro-B Natriuret Pep 718 H (0-125) pg/mL Total Protein 7.0 (6.6-8.7) g/dL Albumin 3.7 (3.5-5.2) g/dL Globulin 3.3 (1.3-4.6) g/dL Urine Color (Yellow) Urine Appearance (CLEAR) Urine pH (5-7) Ur Specific Gravit y (1.005-1.030) Urine Protein (Negative) Urine Glucose (UA) (Normal) Urine Ketones (Negative) Urine Blood (Negative) Urine Nitrate (Negative) Urine Bilirubin (Negative) Urine Urobilinogen (Negative) mg/dL Ur Leukocyte Helena ase (Negative) 12/31/20 Range/Units 08:13 WBC (4.0-10.0) 10^3/ uL RBC (4.1-5.3) 10^6/u L Hgb (11.5-15.3) g/dL Hct (37.0-47.0) % MCV (81-99) fL MCH (28.0-34.0) pg MCHC (30.0-36.0) g/dL RDW (12.1-15.1) % Plt Count (130-400) 10^3/c mm MPV (7.4-10.4) fL Neut % (Auto) % Lymph % (Auto) % Tripp % (Auto) % Eos % (Auto) % Baso % (Auto) % Neut # (Auto) (1.8-7.7) 10^3/u L Lymph # (Auto) (0.8-4.8) 10^3/u L Tripp # (Auto) (0.2-0.9) 10^3/u L Eos # (Auto) (0.0-0.8) 10^3/u L Baso # (Auto) (0.0-0.1) 10^3/u L Nucleated RBC % (a uto) % Nucleated RBCs # /100WBC Sodium (136-145) mmol/L Potassium (3.5-5.1) mmol/L Chloride (98-107) mmol/L Carbon Dioxide (22-29) mmol/L Anion Gap (5-19) BUN (6-20) mg/dL Creatinine (0.5-0.9) mg/dL GFR Calculation (90-130) mL/min Glucose (65-115) mg/dL Calculated Osmolal ity (285-295) mOsm/k g Calcium (8.5-10.5) mg/dL Total Bilirubin (0.15-1.2) mg/dL AST (0-32) U/L ALT (0-33) U/L Alkaline Phosphata se (35-105) IU/L NT-Pro-B Natriuret Pep (0-125) pg/mL Total Protein (6.6-8.7) g/dL Albumin (3.5-5.2) g/dL Globulin (1.3-4.6) g/dL Urine Color Straw (Yellow) Urine Appearance Clear (CLEAR) Urine pH 7 (5-7) Ur Specific Gravit y 1.005 (1.005-1.030) Urine Protein Neg (Negative) Urine Glucose (UA) Norm (Normal) Urine Ketones Negative (Negative) Urine Blood Neg (Negative) Urine Nitrate Negative (Negative) Urine Bilirubin Neg (Negative) Urine Urobilinogen Norm (Negative) mg/dL Ur Leukocyte Helena ase Negative (Negative) Imaging Data^: CT Head: Radiologist's impression: [address] [address] [address] Scan Report Signed Patient: Alla Milton Unit #: [id number] : 1965 Age/Sex: 55 / F ADM Date: 12/31/20 Loc: ER Room/Bed: Attending Dr: Ordering Provider/Ordering MD: Violette Nj Date of Service: 12/31/20 Procedure(s): CT head wo con* [id number] Accession Number(s): [id number] Report Number: [id number] WS: [id number] CT HEAD NONCONTRAST HISTORY: STEELE/dizziness TECHNIQUE: Contiguous axial imaging performed through the brain in 2.5 mm imaging. Bone and soft tissue windows. Sagittal and coronal reformats reviewed. All CT scans at [facility] use at least one of these dose optimization techniques: automated exposure control; mA and/or kV adjustment per patient size (includes targeted exams where dose is matched to clinical indication); or iterative reconstruction. DLP: 716.43 mGy.cm COMPARISON: 06/22/2020 No acute intracranial hemorrhage, midline shift or mass effect. Large LEFT frontal lobe atrophy and encephalomalacia from a prior infarct. No progression or change. Perivascular spaces versus lacunar in the LEFT inferior basal ganglia. Mild chronic mi crovascular ischemic changes bilaterally. Ventricles: Normal size with no hydrocephalus. Paranasal sinuses: Near complete opacification of the LEFT maxillary sinus. Hypoplastic sinus cavities. Mastoid air cells: Coalescence of the mastoid air cells. Very few mastoid air cells are identified. This may be congenital. There is a small amount of fluid in the RIGHT internal auditory canal adjacent to the ossicles. Calvarium and scalp: Skull is intact with no soft tissue edema or swelling. CT/CT head wo con* [id number] IMPRESSION: 1. No acute intracranial hemorrhage or edema. 2. Remote large LEFT frontal lobe infarct with encephalomalacia. 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 Dictated By: Manjula Espinal DO Signed By: Manjula Espinal DO Signed Date/Time: 12/31/20 0846 DD/ 0843 CXR: Radiologist's impression: [facility] [address] [place] [address] XRay Report Signed Patient: Alla Milton Unit #: [id number] : 1965 Age/Sex: 55 / F ADM Date: 12/31/20 Loc: ER Room/Bed: Attending Dr: Ordering Provider/Ordering MD: Violette Nj Date of Service: 12/31/20 Procedure(s): XR chest 1V portable [id number] Accession Number(s): [id number] Report Number: [id number] WS: [id number] Portable AP upright chest, 12/31/2020 Clinical Data: orthostatic hypotension; pre-syncope Comparison: Portable chest, 08/26/2020. Findings: No nodules, masses or effusions are seen. The heart is normal. The pulmonary vascularity is not increased. No pneumonia or pneumothorax is seen. The tracheal tube remains in good position XR/XR chest 1V portable [id number] Impression: Negative chest. Dictated By: Heavenly Thornton MD Signed By: Heaevnly Thornton MD Signed Date/Time: 12/31/20922 DD/ 1 EKG Data^: EKG 1: EKG interpretation date: 12/31/20 EKG interpretation time: 07:53 Interpretation: Sinus bradycardia Rate [address] elevation or depression changes noted Discharge Plan Discharge Patient Disposition: Home Clinical Impression: Orthostatic hypotension Condition: Stable Prescriptions: No Action dextromethorphan-guaifenesin 10-100 mg/5 mL syrup 10 ml PO Q4H PRN (Reason: Cough) RF: 0 simethicone [Gas-X Extra Strength] 125 mg capsule 125 mg PO QID PRN (Reason: STOMACH ISSUES) RF: 0 artifi.tears(hypromellose)(PF) 0.3 % drops 1 drop ophthalmic (eye) QID PRN (Reason: Dry Eyes) RF: 0 acetaminophen [Tylenol] 325 mg capsule 650 mg PO Q4H RF: 0 Pepto-Bismol 262 mg tablet 2 tab PO QID PRN (Reason: STOMACH ISSUES) RF: 0 loperamide 2 mg capsule 4 mg PO Q4H PRN (Reason: Diarrhea) RF: 0 triamcinolone acetonide 0.1 % cream 1 applic TOPICAL BID PRN (Reason: CUTS ABRASIONS) RF: 0 hydrocortisone 2.5 % cream 1 applic TOPICAL BID PRN (Reason: UNKNOWN) RF: 0 (DME) oxygen-air delivery systems Device See Rx Instructions .ROUTE .MEDSUPPLY Qty: 1 RF: 0 levothyroxine 112 mcg capsule 112 mcg PO QDAY RF: 0 allopurinol 100 mg tablet 200 mg PO DAILY RF: 0 fluticasone propionate [Flonase Allergy Relief] 50 mcg/actuation spray,suspension 2 spray INTRANASAL DAILY RF: 0 theophylline 300 mg capsule,extended release 24hr 300 mg PO DAILY RF: 0 atorvastatin 10 mg tablet 10 mg PO DAILY RF: 0 albuterol sulfate 2.5 mg /3 mL (0.083 %) solution for nebulization 2.5 mg INHALATION Q2H PRN (Reason: Shortness Of Breath) RF: 0 trazodone 50 mg tablet 150 mg PO DAILY RF: 0 rivastigmine 4.6 mg/24 hr patch 24 hour 4.6 mg TRANSDERMA DAILY Qty: 30 RF: 5 fluconazole 150 mg tablet 150 mg PO DAILY Qty: 2 RF: 0 citalopram 40 mg tablet 40 mg PO DAILY Qty: 90 RF: 5 quetiapine [Seroquel] 100 mg tablet 100 mg PO BID Qty: 60 RF: 8 (DME) cologard See Rx Instructions .Route .MEDSUPPLY Qty: 1 RF: 0 TobraDex 0.3-0.1 % ointment 1 applic ophthalmic (eye) TID 5 Days Qty: 3.5 RF: 0 omeprazole 40 mg capsule,delayed release(DR/EC) 40 mg PO DAILY Qty: 30 RF: 5 ammonium lactate 12 % Lotion 1 applic TOPICAL BID RF: 0 CeraVe Psoriasis 2 % Cream See Rx Instructions .ROUTE .COMPLEX RF: 0 Antifungal (tolnaftate) 1 % Powder 1 applic TOPICAL DAILY RF: 0 CeraVe Cream See Rx Instructions .ROUTE .COMPLEX RF: 0 Discharge Orders: Discharge ED (Routine); Ordered 12/31/20 Ordered By: Violette Nj Referrals: Jas Vaca MD [Primary Care Provider] - Patient Instructions: Syncope (ED), Hypotension (ED), Opioid Safety Coding Level of Care Code ED Dredge Operator Supervisor for Chg Fwd Exam Comprehensive
[2020-12-31 07:45] VITALS: BP 98/64; PULSE 57; RESP 14; TEMP 37; O2SAT 97; BMI 28.3
[2020-12-31] MEDS: sodium chloride 0.9% 1,000 ML 999 ML IV (07:50)
[2020-12-31 07:51] VITALS: BP 117/73; PULSE 68; RESP 13; O2SAT 99
[2020-12-31 07:53] VITALS: BP 112/68; BP 114/66; BP 88/58; PULSE 59; PULSE 60; PULSE 74
[2020-12-31 08:04] LABS: Basophils # 0.1 10^3/uL (0.0-0.1); Basophils % 1.3 %; Eosinophils % 0.8 %; Hematocrit 44.1 % (37.0-47.0); Hemoglobin 14.7 g/dL (11.5-15.3); Lymphocytes # 0.4 10^3/uL (0.8-4.8); Lymphocytes % 10.9 %; Mean Corpuscular HGB Conc 33.3 g/dL (30.0-36.0); Mean Corpuscular Hemoglobin 35.5 pg (28.0-34.0); Mean Corpuscular Volume 106.5 fL (81-99); Mean Platelet Volume 11.1 fL (7.4-10.4); Monocytes # 0.3 10^3/uL (0.2-0.9); Monocytes % 6.6 %; Neutrophils # 3.17 10^3/uL (1.8-7.7); Neutrophils % 79.9 %; Nucleated Red Blood Cells % 0 %; Platelet Count 113 10^3/cmm (130-400); Red Blood Count 4.14 10^6/uL (4.1-5.3)
[2020-12-31 08:20] LABS: Add Urine Microscopic? NO
--- NOTE | 2020-12-31 08:23 | CT_ITS ---
WS: [id number] CT HEAD NONCONTRAST HISTORY: STEELE/dizziness TECHNIQUE: Contiguous axial imaging performed through the brain in 2.5 mm imaging. Bone and soft tiss ue windows. Sagittal and coronal reformats reviewed. All CT scans at [facility] use at ast one of these dose optimization techniques: automated exposure control; mA and/or kV adjustment pe r patient size (includes targeted exams where dose is matched to clinical indication); or iterative r econstruction. DLP: 716.43 mGy.cm COMPARISON: 06/22/2020 No acute intracranial hemorrhage, midline shift or mass effect. Large LEFT frontal lobe atrophy and encephalomalacia from a prior infarct. No progression or change. Perivascular spaces versus lacunar in the LEFT inferior basal ganglia. Mild chronic microvascular is chemic changes bilaterally. Ventricles: Normal size with no hydrocephalus. Paranasal sinuses: Near complete opacification of the LEFT maxillary sinus. Hypoplastic sinus cavities. Mastoid air cells: Coalescence of the mastoid air cells. Very few mastoid air cells are identified. T his may be congenital. There is a small amount of fluid in the RIGHT internal auditory canal adjacent to the ossicles. Calvarium and scalp: Skull is intact with no soft tissue edema or swelling. CT/CT head wo con* [id number] IMPRESSION: 1. No acute intracranial hemorrhage or edema. 2. Remote large LEFT frontal lobe infarct with encephalomalacia. 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
[2020-12-31 08:34] LABS: Alanine Aminotransferase 15 U/L (0-33); Albumin Level 3.7 g/dL (3.5-5.2); Alkaline Phosphatase 104 IU/L (35-105); Aspartate Amino Transferase 24 U/L (0-32); Blood Urea Nitrogen 18 mg/dL (6-20); Calcium 9.5 mg/dL (8.5-10.5); Carbon Dioxide 29 mmol/L (22-29); Chloride 100 mmol/L (98-107); Globulin 3.3 g/dL (1.3-4.6); Glucose 89 mg/dL (65-115); Osmolality Calculated 279 mOsm/kg (285-295); Sodium 134 mmol/L (136-145); Total Bilirubin 0.4 mg/dL (0.15-1.2)
[2020-12-31 08:44] LABS: Anion Gap 9.1 (5-19); Potassium 4.1 mmol/L (3.5-5.1)
[2020-12-31 08:46] LABS: Specific Gravity, Urine 1.005 (1.005-1.030); Urine Appearance Clear (CLEAR); Urine Color Straw (Yellow); pH Urine 7 (5-7)
[2020-12-31 08:47] LABS: Bilirubin Urine Neg (Negative); Blood Urine Neg (Negative); Glucose Urine UA Norm (Normal); Ketones Urine Negative (Negative); Leukocyte Esterase Urine Negative (Negative); Nitrate Urine Negative (Negative); Protein Urine Neg (Negative); Urobilinogen Urine Norm (Negative)
[2020-12-31 08:51] VITALS: BP 105/71; PULSE 59; RESP 18; O2SAT 95
[2020-12-31 09:00] VITALS: BP 105/71; PULSE 60; RESP 15; O2SAT 92
[2020-12-31 09:00] LABS: NT Pro B Type Natriuretic Pept 718 pg/mL (0-125)
--- NOTE | 2020-12-31 09:05 | XR_ITS ---
WS: [id number] Portable AP upright chest, 12/31/2020 Clinical Data: orthostatic hypotension; pre-syncope Comparison: Portable chest, 08/26/2020. Findings: No nodules, masses or effusions are seen. The heart is normal. The pulmonary vascularity is not increased. No pneumonia or pneumothorax is seen. The tracheal tube remains in good position XR/XR chest 1V portable [id number] Impression: Negative chest.
[2020-12-31 09:50] VITALS: BP 105/71; PULSE 75; RESP 24; TEMP 36.6; O2SAT 97
--- NOTE | 2020-12-31 10:37 | ECG_ITS ---
[facility] Test Date: 2020-12-31 Pat Name: Alla Milton Department: Room: Gender: Female Apprentice Photographer: : 1965 Requested By: Violette Nj Order Number: [id number] Berger MD: India Stoner M.D. Measurements Intervals [place] Rate: 57 P: 13 IN: 146 QRS: 63 QRSD: 89 T: 39 QT: 442 QTc: 433 Interpretive Statements SINUS BRADYCARDIA Compared to ECG 08/23/2018 13:35:40 No significant changes Electronically Signed On 12-31-2020 22:24:11 REAL ESTATE SALESPERSON by India Stoner M.D. [id number]
== END 2020-12-31 10:02 | disposition home or self-care (01) ==
PROVIDERS: Emergency Provider Physician Assistant; PCP Internal Medicine
DX: I95.1 Orthostatic hypotension (principal); I25.10 Atherosclerotic heart disease of native coronary artery without angina pectoris; Z86.73 Personal history of transient ischemic attack (TIA), and cerebral infarction without residual deficits
CPT/HCPCS: 70450; 71045; 80053; 81003; 83880; 85025; 93005; 96360; 99284; J7030

== ENCOUNTER → 2021-02-23 14:35 | Outpatient (BNVA) | payer MEDICARE, MEDICAID, SELFPAY | PROVIDERS: PCP Internal Medicine; Visit Provider Specialist | DX: G30.9 Alzheimer's disease, unspecified (principal); F02.80 Dementia in other diseases classified elsewhere, unspecified severity, without behavioral disturbance, psychotic disturbance, mood disturbance, and anxiety; F32.9 Major depressive disorder, single episode, unspecified; Q90.9 Down syndrome, unspecified | CPT/HCPCS: 99213 ==

== ENCOUNTER → 2021-04-15 11:19 | Outpatient (BNVA) | payer MEDICARE, MEDICAID, SELFPAY | PROVIDERS: PCP Internal Medicine; Referring Provider Internal Medicine; Visit Provider Podiatrist Foot & Ankle Surgery | DX: M20.11 Hallux valgus (acquired), right foot (principal) | CPT/HCPCS: 73630 ==

== ENCOUNTER 2021-07-16 15:01 | Outpatient (CLI) | payer MEDICARE, MEDICAID, SELFPAY ==
--- NOTE | 2021-07-16 15:00 | MM_ITS ---
WS: [id number] BILATERAL SCREENING DIGITAL MAMMOGRAM WITH CAD HISTORY: Z12.39 - Encounter for other screening for malignant neoplasm. COMPARISON: 07/15/2020 and 03/01/2019 Bilateral CC and MLO views submitted. Computer aided detection analyzed. Breast composition: There are scattered areas of fibroglandular density. No suspicious masses, microc alcifications or architectural distortion. MM/[place] [id number] IMPRESSION: BI-RADS: 1-Negative FOLLOW UP: 1 Year Follow-up
== END 2021-07-16 15:02 | disposition home or self-care (01) ==
LOC: RADSHAW 15:07
PROVIDERS: PCP Internal Medicine; Visit Provider Internal Medicine
DX: Z12.31 Encounter for screening mammogram for malignant neoplasm of breast (principal)
CPT/HCPCS: 77067

== ENCOUNTER → 2021-08-23 10:54 | Outpatient (BNVA) | payer MEDICARE, MEDICAID, SELFPAY | PROVIDERS: PCP Internal Medicine; Visit Provider Specialist | DX: G30.9 Alzheimer's disease, unspecified (principal); F02.80 Dementia in other diseases classified elsewhere, unspecified severity, without behavioral disturbance, psychotic disturbance, mood disturbance, and anxiety; G47.34 Idiopathic sleep related nonobstructive alveolar hypoventilation; Q90.9 Down syndrome, unspecified | CPT/HCPCS: 99213; 99214 ==

== ENCOUNTER 2021-11-17 08:07 | Inpatient (IN) | payer MEDICARE, MEDICAID, SELFPAY ==
[2021-11-17] VITALS (10 sets, daily range): BP systolic 103–157; BP diastolic 69–101; PULSE 56–85; RESP 14–22; TEMP 36.6–36.7; O2SAT 81–97; BMI 34.9
--- NOTE | 2021-11-17 09:24 | ED_ITS ---
HPI - COVID General: Chief Complaint: COVID symptoms Stated Complaint: SOB, COVID Postive Time Seen by Provider: 11/17/21 08:15 Triage information: No fever, cough or shortness of breath . No known COVID + exposure last 14 days History of Present Illness: HPI Narrative: 55 year old female with Down's Syndrome and Alzheimer's disease presents to ER due to shortness of breath. Reports symptoms started 3-4 days ago and patient tested positive for COVID yesterday. She lives at a snf and her oxygen saturation was 85% on room air this morning. Caregiver reports patient has been sleepier than usual. Oxygen saturation improved to 93% on room air on arrival at hospital. Caregiver reports patient is only on 3L of oxygen at night. She has received two doses of COVID vaccine but has not received the booster. Reports cough. Patient tested COVID+ at another facility. COVID 19 common symptoms: positive non-productive cough; negative fever(s), chills, productive cough, dyspnea, fatigue, body aches, throat pain, nasal congestion, nausea, vomiting or diarrhea COVID 19 other sytmptoms: negative chest pain COVID Results: SARS-CoV-2 Antigen (Rapid) Negative (Negative) 08/26/20 17:30 08/26/20 Nasal/Oral Coronavirus 2019 PCR Negative 08/26/20 23:10 08/26/20 Review of Systems Const: Denies: fever(s), chills, body aches, change in appetite, fatigue or malaise ENMT: Denies: throat pain, ear or mastoid pain, nasal discharge or nasal congestion Card: Denies: chest pain, edema, dyspnea on exertion or orthopnea Resp: Reports: non-productive cough; Denies: dyspnea or productive cough GI: Denies: abdominal pain, nausea, vomiting, hematemesis, coffee ground emesis, diarrhea, constipation, bloating, hematochezia or melena : Denies: flank pain, difficulty voiding, dysuria, urinary frequency or urinary urgency Skin/Breast: Denies: rash or pruritus PFSH ED PFSH: Medical History Coronary artery disease Depression Stroke Surgical History Hx of cholecystectomy (~2011) Hx of myringotomy (~02/24/16) with tube placement Hx of tracheostomy (~1987) Hx of tubal ligation (~1999) Family History Other Unknown family medical history Social History Smoking and tobacco status: never smoked Second hand smoke exposure: No Alcohol intake: never History of recent travel: No Additional social history: - Tobacco use: Never Alcohol use: Never Drug use: Never Physical Exam Const: COMMON NORMALS: no acute distress GENERAL APPEARANCE: cooperative and comfortable ORIENTATION/CONSCIOUSNESS: Yes awake, Yes oriented to person, Yes oriented to place and Yes oriented to time Resp: COMMON NORMALS: normal respiratory effort, No retractions and No use of accessory muscles OTHER: Slight crackles on lower lung schroeder Cardio: COMMON NORMALS: regular rate, regular rhythm and No murmurs present (Cardio) RATE: regular rate RHYTHM: regular rhythm GI: COMMON NORMALS: Soft to palpation AUSCULTATION: Yes normoactive bowel sounds PALPATION: Yes Soft to palpation, No Tenderness to palpation present (GI) and No Guarding due to palpation present (GI) Extremity: COMMON NORMALS: normal to inspection and no clubbing, cyanosis or edema Neuro: SENSORIUM/ORIENTATION: Yes oriented to person, Yes oriented to place and Yes oriented to time Course Vital Signs: Vital signs: Vital Signs Temperature 98.1 F 11/17/21 09:13 Pulse Rate 72 11/17/21 09:13 Respiratory Rate 20 H 11/17/21 09:13 Blood Pressure 104/72 11/17/21 09:13 Pulse Oximetry 91 11/17/21 11:20 MDM - COVID MDM Narrative: Medical decision making narrative: Patient's O2 sat is good at rest however when she gets out of bed even to take 2 or 3 steps she immediately drops into the low 80s. Given her intellectual disability I am not sure she would be able to safely be treated at home. I do not think she will be able to recognize signs and symptoms of hypoxia and relate those to the staff. Staff is not medically trained to monitor this sort of thing and I do not think it would be safe for the patient at home I suspect she may significantly worsen discussed with hospitalist will admit start remdesivir and dexamethasone. Lab Data: Labs: Lab Results 11/17/21 11/17/21 11/17/21 09:45 09:45 09:45 WBC 2.4 10^3/uL L 10^ 3/uL (4.0-10.0) RBC 3.95 10^6/uL L 10 ^6/uL (4.1-5.3) Hgb 14.0 g/dL g/dL (11.5-15.3) Hct 41.5 % % (37.0-47.0) MCV 105.1 fl H fl (81-99) MCH 35.4 pg H pg (28.0-34.0) MCHC 33.7 g/dL g/dL (30.0-36.0) RDW 14.1 % % (12.1-15.1) Plt Count 64 10^3/cmm L 10^ 3/cmm (130-400) MPV 12.2 fL H fL (7.4-10.4) Neut % (Auto) 66.7 % % Lymph % (Auto) 21.7 % % [place] % (Auto) 8.3 % % Eos % (Auto) 1.7 % % Baso % (Auto) 0.8 % % Neut # (Auto) 1.60 10^3/uL L 10 ^3/uL (1.8-7.7) Lymph # (Auto) 0.5 10^3/uL L 10^ 3/uL (0.8-4.8) [place] # (Auto) 0.2 10^3/uL 10^3/ uL (0.2-0.9) Eos # (Auto) 0.0 10^3/uL 10^3/ uL (0.0-0.8) Baso # (Auto) 0.0 10^3/uL 10^3/ uL (0.0-0.1) Nucleated RBC % (a uto) 0 % % Nucleated RBCs # 0.0 /100WBC /100W BC D-Dimer 2.18 ug/mIFEU H u g/mIFEU (0-0.59) Sodium 142 mmol/L mmol/L (136-145) Potassium 4.4 mmol/L mmol/L (3.5-5.1) Chloride 105 mmol/L mmol/L (98-107) Carbon Dioxide 28 mmol/L mmol/L (22-29) Anion Gap 13.4 (5-19) BUN 16 mg/dL mg/dL (6-20) Creatinine 1.0 mg/dL H mg/dL (0.5-0.9) GFR Calculation 58.0 mL/min L mL/ min (90-130) Glucose 111 mg/dL mg/dL (65-115) Calculated Osmolal ity 296 mOsm/kg H mOs m/kg (285-295) Calcium 8.7 mg/dL mg/dL (8.5-10.5) Total Bilirubin 0.3 mg/dL mg/dL (0.15-1.2) AST 30 U/L U/L (0-32) ALT 21 U/L U/L (0-33) Alkaline Phosphata se 94 IU/L IU/L (35-105) Total Protein 6.2 g/dL L g/dL (6.6-8.7) Albumin 3.4 g/dL L g/dL (3.5-5.2) Globulin 2.8 g/dL g/dL (1.3-4.6) Procalcitonin 0.03 ng/mL ng/mL (0-0.5) COVID Results: SARS-CoV-2 Antigen (Rapid) Negative (Negative) 08/26/20 17:30 08/26/20 Nasal/Oral Coronavirus 2019 PCR Negative 08/26/20 23:10 08/26/20 Discharge Plan Discharge Patient Disposition: Admitted As Inpatient Admit Provider: Jessie Fried Clinical Impression: COVID-19, Alzheimer disease, Trisomy 21 Condition: Stable Coding Level of Care Code ED Rigging Up Man for [facility] Fwd Exam Detailed
--- NOTE | 2021-11-17 09:25 | XR_ITS ---
WS: [id number] Exam: XR chest 1V portable [id number] Date/Time of Exam: 11/17/2021 9:26 AM Reason For Exam: dyspnea/cough Comparison 12/31/2020. There are patchy groundglass infiltrates in the upper and lower right lung as well as the region of t he lingula. This would suggest active pneumonia. The lungs are fully expanded. No pleural effusions. Cardiomediastinal silhouette is unremarkable. A tracheostomy tube is in place appearing to be in sati sfactory position. Regional bony structures are intact. XR/XR chest 1V portable [id number] IMPRESSION: 1. Bilateral pneumonia.
[2021-11-17] MEDS: dexamethasone 10 mg/mL INJ 6 MG IVP ×2 (09:50→13:42)
[2021-11-17 10:06] LABS: Basophils % 0.8 %; Eosinophils % 1.7 %; Hematocrit 41.5 % (37.0-47.0); Lymphocytes # 0.5 10^3/uL (0.8-4.8); Lymphocytes % 21.7 %; Mean Corpuscular HGB Conc 33.7 g/dL (30.0-36.0); Mean Corpuscular Hemoglobin 35.4 pg (28.0-34.0); Mean Corpuscular Volume 105.1 fl (81-99); Mean Platelet Volume 12.2 fL (7.4-10.4); Monocytes # 0.2 10^3/uL (0.2-0.9); Monocytes % 8.3 %; Neutrophils % 66.7 %; Nucleated Red Blood Cells % 0 %; Platelet Count 64 10^3/cmm (130-400); Red Blood Count 3.95 10^6/uL (4.1-5.3); Red Cell Distribution Width 14.1 % (12.1-15.1); White Blood Count 2.4 10^3/uL (4.0-10.0)
[2021-11-17 10:28] LABS: D Dimer 2.18 ug/mIFEU (0-0.59)
[2021-11-17 10:35] LABS: Alanine Aminotransferase 21 U/L (0-33); Albumin Level 3.4 g/dL (3.5-5.2); Alkaline Phosphatase 94 IU/L (35-105); Aspartate Amino Transferase 30 U/L (0-32); Blood Urea Nitrogen 16 mg/dL (6-20); Calcium 8.7 mg/dL (8.5-10.5); Carbon Dioxide 28 mmol/L (22-29); Chloride 105 mmol/L (98-107); Globulin 2.8 g/dL (1.3-4.6); Glucose 111 mg/dL (65-115); Osmolality Calculated 296 mOsm/kg (285-295); Sodium 142 mmol/L (136-145); Total Bilirubin 0.3 mg/dL (0.15-1.2); Total Protein 6.2 g/dL (6.6-8.7)
[2021-11-17 10:37] LABS: Slide Review Slide Review Perform
[2021-11-17 10:39] LABS: Anion Gap 13.4 (5-19); Potassium 4.4 mmol/L (3.5-5.1)
[2021-11-17 10:41] LABS: Procalcitonin 0.03 ng/mL (0-0.5)
--- NOTE | 2021-11-17 12:26 | CT_ITS ---
WS: [id number] CT CHEST ANGIOGRAPHY WITH REFORMATS HISTORY: Covid, positive d-dimer. TECHNIQUE: Contiguous axial images are obtained through the chest during arterial injection of intrav enous contrast. Images are reconstructed to evaluate the pulmonary arteries. MIP imaging also reviewe d. All CT scans at [facility] use at least one of these dose optimization techniques: automat ed exposure control; mA and/or kV adjustment per patient size (includes targeted exams where dose is matched to clinical indication); or iterative reconstruction. CONTRAST: Omnipaque 350; 68 mL IV. DLP: 518.12 mGy.cm COMPARISON: 08/26/2020 Good opacification of the pulmonary arteries. No filling defects within the segmental branches. Beyon d the segmental branches the opacification is becoming limited. Pulmonary artery size is normal. Ther e is mild RIGHT heart strain. Very similar to the prior examination. All 4 chambers are slightly enla rged. Normal-sized thoracic aorta. Patient has a tracheostomy which is in good position. Multi lobar areas of groundglass opacification. Most significant throughout the RIGHT lung. No dense area of consolidation. No adenopathy. Visualized liver is normal. Mild thoracic curvature. Degenerative changes in the midthoracic spine. No fractures. CT/CT angio chest PE protcl [id number] IMPRESSION: 1. No pulmonary embolism to the segmental branches. Beyond the segmental branc hes the opacification is limited. 2. Multi lobar groundglass areas of pneumonitis, most significant on the RIGHT . 3. Tracheostomy in good position. 4. Enlarged heart, similar to the prior study.
[2021-11-17] MEDS: iohexol 350 mg/mL 100 mL Btl IV (13:18)
[2021-11-17] MEDS: remdesivir 200 MG in sodium chloride 0.9% (100 ml) 60 ML 100 MG IV (13:43)
--- NOTE | 2021-11-17 13:44 | PM.HP ---
Providers/Chief Complaint Admitting Physician: Jessie Fried MD Primary Care Provider: Jas Vaca MD Chief Complaint: SOB, COVID Postive History of Present Illness Alla Milton is a 55 year old female who presented to the hospital for worsening of of fatigue, shortness of breath and hypoxia. Symptoms started about a week ago and she was tested yesterday at an outside facility. Other members at the halfway also tested positive. On room air she was saturating in low 80s. At baseline she uses 3 L of oxygen at night. In the ER she was saturating well at rest however on ambulation she was becoming more hypoxic, O2 saturation dropped to 81%, decision was made to admit her start remdesivir and Decadron. Patient does have tracheostomy tube which she keeps capped. Review of Systems General: Reports: ROS unobtainable due to medical condition Medications/Allergies Home Medications Medication Instructions Recorded Confirmed Last Taken Type allopurinol 100 mg tablet 200 mg PO DAILY@11/18/19 11/17/21 11/17/21 History atorvastatin 10 mg tablet 10 mg PO DAILY@11/18/19 11/17/21 11/16/21 History fluticasone propionate 50 2 spray INTRANASAL DAILY@11/18/19 11/17/21 11/17/21 History mcg/actuation nasal spray,suspension theophylline 300 mg 150 mg PO BID@11/18/19 11/17/21 11/17/21 08:00 History capsule,extended release 24 hr acetaminophen 325 mg capsule 650 mg PO Q4H PRN 11/25/19 11/17/21 Unknown History artifi.tears(hypromellose)(PF) 0.3 1 drop OPHTHALMIC (EYE) Q6H PRN 11/25/19 11/17/21 08/26/20 History % eye drops dextromethorphan-guaifenesin 10 10 ml PO Q4H PRN 11/25/19 11/17/21 08/26/20 History mg-100 mg/5 mL oral syrup hydrocortisone 2.5 % topical cream See Rx Instructions .ROUTE .COMPLEX 11/25/19 11/17/21 Unknown History loperamide 2 mg capsule See Rx Instructions .ROUTE 11/25/19 11/17/21 08/02/20 History .COMPLEX cap oxygen-air delivery systems #1 11/25/19 11/17/21 Unknown History simethicone 125 mg capsule 125 mg PO Q6H PRN 11/25/19 11/17/21 Unknown History trazodone 50 mg tablet 150 mg PO BEDTIME@20 tab 11/25/19 11/17/21 11/16/21 History triamcinolone acetonide 0.1 % See Rx Instructions .ROUTE .COMPLEX 11/25/19 11/17/21 Unknown History topical cream cologard #1 ea 06/01/20 11/17/21 Unknown Rx ammonium lactate See Rx Instructions .ROUTE .COMPLEX 08/26/20 11/17/21 08/26/20 History ceramides 1,3,6-II [CeraVe] See Rx Instructions .ROUTE .COMPLEX 08/26/20 11/17/21 08/26/20 History ondansetron HCl 4 mg tablet 4 mg PO Q6H PRN #30 tab 01/12/21 11/17/21 Unknown Rx miconazole nitrate 2 % topical See Rx Instructions TOPICAL DAILY 03/16/21 11/17/21 Unknown Rx powder #85 g Portable Oxygen Concentrator ea 08/23/21 11/17/21 Unknown History albuterol sulfate 2.5 mg INHALATION Q2H PRN #180 ml 11/04/21 11/17/21 Unknown Rx budesonide 1 mg/2 mL suspension 1 mg INHALATION BID 14 Days #56 ml 11/16/21 11/17/21 11/17/21 07:00 Rx for nebulization Fluo/Salic/[place] Tar Cream See Rx Instructions .ROUTE .COMPLEX 11/17/21 11/17/21 Unknown History Seroquel 100 mg PO BID@08,11/17/21 11/17/21 11/17/21 08:00 History bismuth subsalicylate 524 mg PO Q4H PRN 11/17/21 11/17/21 Unknown History [Pepto-Bismol] citalopram 40 mg PO DAILY@08 11/17/21 11/17/21 11/17/21 History fluticasone propionate See Rx Instructions .ROUTE .COMPLEX 11/17/21 11/17/21 Unknown History ketoconazole See Rx Instructions .ROUTE .COMPLEX 11/17/21 11/17/21 Unknown History ketoconazole See Rx Instructions .ROUTE .COMPLEX 11/17/21 11/17/21 Unknown History levothyroxine 112 mcg PO DAILY@07 11/17/21 11/17/21 11/17/21 History gfgircvz-xdepjwvpiJg-olzkabobS 1 applic TOPICAL Q8H PRN 11/17/21 11/17/21 Unknown History [Triple Antibiotic] omeprazole 40 mg PO DAILY@08 11/17/21 11/17/21 11/17/21 History pyrithione zinc [DermaZinc Shampoo] See Rx Instructions .ROUTE .COMPLEX 11/17/21 11/17/21 Unknown History quetiapine [Seroquel] 25 mg PO TID PRN 11/17/21 11/17/21 Unknown History rivastigmine 4.6 mg TRANSDERMA DAILY@11/17/21 11/17/21 11/17/21 History Allergies Allergy/AdvReac Type Severity Reaction Status Date / Time oral contraceptives Allergy unknown Uncoded 11/16/21 10:33 PFSH Acute PFSH: Medical History Coronary artery disease Depression Stroke Surgical History Hx of cholecystectomy (~2011) Hx of myringotomy (~02/24/16) with tube placement Hx of tracheostomy (~1987) Hx of tubal ligation (~1999) Family History Other Unknown family medical history Social History Smoking and tobacco status: never smoked Second hand smoke exposure: No Alcohol intake: never History of recent travel: No Additional social history: - Tobacco use: Never Alcohol use: Never Drug use: Never Vitals/I&O/Wt Last Vital Signs Temp 98.1 F 11/17/21 09:13 Pulse 72 11/17/21 09:13 Resp 20 H 11/17/21 09:13 BP 104/72 11/17/21 09:13 Pulse Ox 91 11/17/21 11:20 Weight last 48 hrs Weight 81.193 kg Physical Exam Narrative: EXAM NARRATIVE: Middle-age female Down syndrome features Patient has a tracheostomy tube which is capped Saturating 90-91% on room air at rest Soft abdomen No signs of edema No signs of acute respiratory distress Appears comfortable Able to move all of her extremities Data : 11/17/21 09:45 11/17/21 09:45 A&P Assessment and plan (1) COVID-19: Status: Acute (2) Hypothyroidism: Status: Acute (3) Incontinence: Status: Acute (4) Trisomy 21: Status: Acute (5) Alzheimer disease: Status: Acute Additional A&P Information COVID-19 related hypoxia Will start remdesivir and Decadron At rest saturation 90 to 91% Asked RT to put 2 L nasal cannula Will like to monitor her for next 24 to 30 hours I would not add any empirical antibiotics at this point Leukopenia related to COVID-19 I would continue her home regimen for skin rash and gout DuoNeb every 4 as needed Continue levothyroxine Patient is full code Regular diet DVT prophylaxis Lovenox Attestations Medical Necessity Statement*: Anticipating more than 2 midnights in the hospital Time Spent in Patient Care: Greater than 35 minutes Coding Level of Care Code Acute Annual Campaign Manager for [facility] Fwd Diagnoses COVID-19 U07.1 Hypothyroidism E03.9 Incontinence R32 Trisomy 21 Q90.9 Alzheimer disease G30.9; F02.80
--- NOTE | 2021-11-17 17:43 | PC.NURSE ---
Pt resting quietly and appears to be sleeping between care, no other needs identified at this time, will continue to monitor.
--- NOTE | 2021-11-17 19:55 | PC.NURSE ---
pt not answering any questions at this time
[2021-11-18 05:51] VITALS: BP 139/82; PULSE 68; RESP 18; O2SAT 95
[2021-11-18 06:03] LABS: Basophils % 0.3 %; Hematocrit 39.4 % (37.0-47.0); Hemoglobin 13.6 g/dL (11.5-15.3); Lymphocytes # 0.5 10^3/uL (0.8-4.8); Lymphocytes % 13.9 %; Mean Corpuscular HGB Conc 34.5 g/dL (30.0-36.0); Mean Corpuscular Hemoglobin 36.3 pg (28.0-34.0); Mean Corpuscular Volume 105.1 fl (81-99); Mean Platelet Volume 11.6 fL (7.4-10.4); Monocytes # 0.1 10^3/uL (0.2-0.9); Monocytes % 3.7 %; Neutrophils # 2.87 10^3/uL (1.8-7.7); Neutrophils % 81.5 %; Nucleated Red Blood Cells % 0 %; Platelet Count 79 10^3/cmm (130-400); Red Blood Count 3.75 10^6/uL (4.1-5.3); Red Cell Distribution Width 13.9 % (12.1-15.1); White Blood Count 3.5 10^3/uL (4.0-10.0)
[2021-11-18 06:28] LABS: Slide Review Slide Review Perform
[2021-11-18 06:32] LABS: Anion Gap 17.5 (5-19); Blood Urea Nitrogen 16 mg/dL (6-20); C Reactive Protein 28.4 mg/L (0.0-4.9); Calcium 8.8 mg/dL (8.5-10.5); Carbon Dioxide 24 mmol/L (22-29); Glucose 129 mg/dL (65-115); Osmolality Calculated 297 mOsm/kg (285-295)
[2021-11-18 06:33] LABS: Chloride 105 mmol/L (98-107); Sodium 142 mmol/L (136-145)
[2021-11-18 06:34] LABS: Lactate Dehydrogenase 228 U/L (135-214); Potassium 4.5 mmol/L (3.5-5.1)
[2021-11-18 09:25] VITALS: BP 118/78; PULSE 74; RESP 18; TEMP 36.8; O2SAT 90
[2021-11-18] MEDS: levothyroxine 112 mcg Tablet PO (09:31)
[2021-11-18] MEDS: fluticasone nasal spray 16gm Btl 2 SPRAY INTRANASAL (09:31)
[2021-11-18] MEDS: pantoprazole DR 40 mg Tablet PO (09:31)
[2021-11-18] MEDS: allopurinol 100 mg Tablet 200 MG PO (09:31)
--- NOTE | 2021-11-18 10:09 | P.PN_ITS ---
Subjective Subjective: Interval history: Patient was seen and examined this morning, she is saturating well on 2 L nasal cannula She is not endorsing any shortness of breath or chest pain She is not feeling hungry Vitals/I&O/Wt Last Vital Signs Temp 98.2 F 11/18/21 09:25 Pulse 74 11/18/21 09:25 Resp 18 11/18/21 09:25 BP 118/78 11/18/21 09:25 Pulse Ox 90 11/18/21 09:25 Weight last 48 hrs Weight 76.912 kg Weight 81.193 kg Physical Exam Narrative: EXAM NARRATIVE: Patient resting comfortably in her bed Saturating well on 2 L nasal cannula No use of respiratory landscaping specialist muscles No conversational dyspnea Abdomen soft No signs of edema Cuffed trach collar Fatigued and lethargic Abdomen soft No audible stridor or wheezing Data : 11/18/21 05:39 11/18/21 05:39 A&P Assessment and plan (1) COVID-19: Status: Acute (2) Hypothyroidism: Status: Acute (3) Alzheimer disease: Status: Acute (4) Incontinence: Status: Acute Additional A&P Information COVID-19 related hypoxia Currently on 2 L of cannula Continue remdesivir Decadron Thrombocytopenia no active bleeding Avoid anticoagulating agent DVT prophylaxis: SCDs Hypothyroidism: Continue levothyroxine Continue antipsychotics Full code Attestations Medical Necessity Statement*: Continue medical management Coding Level of Care Code Acute Software Project Manager for [facility] Fwd Diagnoses COVID-19 U07.1 Hypothyroidism E03.9 Alzheimer disease G30.9; F02.80 Incontinence R32
[2021-11-18 12:00] VITALS: BP 135/81; PULSE 74; RESP 17; TEMP 36.6; O2SAT 100
[2021-11-18 15:41] VITALS: BP 120/78; PULSE 80; RESP 18; TEMP 37.1; O2SAT 92
[2021-11-18] MEDS: remdesivir 100 MG in sodium chloride 0.9% (100 ml) 80 ML IV (17:39)
[2021-11-18] MEDS: dexamethasone 10 mg/mL INJ 6 MG IVP (17:39)
[2021-11-18 20:00] VITALS: BP 139/85; PULSE 85; RESP 19; TEMP 37.4; O2SAT 92
[2021-11-18] MEDS: trazodone 150 mg Tablet PO (20:40)
[2021-11-19] VITALS (7 sets, daily range): BP systolic 134–139; BP diastolic 76–85; PULSE 44–84; RESP 16–20; TEMP 36.6–37.3; O2SAT 91–96
[2021-11-19] MEDS: levothyroxine 112 mcg Tablet PO (05:54)
[2021-11-19 07:03] LABS: Hematocrit 40.4 % (37.0-47.0); Hemoglobin 13.7 g/dL (11.5-15.3); Lymphocytes # 0.7 10^3/uL (0.8-4.8); Lymphocytes % 10.4 %; Mean Corpuscular HGB Conc 33.9 g/dL (30.0-36.0); Mean Corpuscular Hemoglobin 35.5 pg (28.0-34.0); Mean Corpuscular Volume 104.7 fl (81-99); Mean Platelet Volume 11.6 fL (7.4-10.4); Monocytes # 0.3 10^3/uL (0.2-0.9); Monocytes % 4.7 %; Neutrophils # 5.62 10^3/uL (1.8-7.7); Neutrophils % 84.4 %; Nucleated Red Blood Cells % 0 %; Platelet Count 93 10^3/cmm (130-400); Red Blood Count 3.86 10^6/uL (4.1-5.3); White Blood Count 6.7 10^3/uL (4.0-10.0)
[2021-11-19 07:14] LABS: Anion Gap 12.2 (5-19); Blood Urea Nitrogen 22 mg/dL (6-20); Calcium 8.6 mg/dL (8.5-10.5); Carbon Dioxide 27 mmol/L (22-29); Chloride 106 mmol/L (98-107); Glucose 132 mg/dL (65-115); Osmolality Calculated 297 mOsm/kg (285-295); Potassium 4.2 mmol/L (3.5-5.1); Sodium 141 mmol/L (136-145)
[2021-11-19] MEDS: allopurinol 100 mg Tablet 200 MG PO (08:20)
[2021-11-19] MEDS: pantoprazole DR 40 mg Tablet PO (08:21)
[2021-11-19] MEDS: fluticasone nasal spray 16gm Btl 2 SPRAY INTRANASAL (08:24)
--- NOTE | 2021-11-19 08:54 | PM.PN ---
Subjective Subjective: Interval history: Patient resting comfortably on 1.5 L nasal cannula Had 1 bowel movement, voiding without any difficulty Eating without any difficulty Afebrile, no leukocytosis bradycardia while she is asleep Vitals/I&O/Wt Last Vital Signs Temp 98.6 F 11/19/21 08:00 Pulse 53 L 11/19/21 08:00 Resp 18 11/19/21 08:00 BP 138/80 11/19/21 08:00 Pulse Ox 95 11/19/21 08:00 11/18/21 11/19/21 11/19/21 22:59 06:59 14:59 Intake Total 320 / 320 60 / 380 Balance 320 / 320 60 / 380 Weight last 48 hrs Weight 77.156 kg Weight 76.912 kg Weight 81.193 kg Physical Exam Narrative: EXAM NARRATIVE: Resting comfortably 1.5 L nasal cannula Trach collar which is cuffed Euvolemic No acute respite distress No audible stridor or wheezing No new focal deficit Abdomen soft Data : 11/19/21 06:30 11/19/21 06:30 A&P Assessment and plan (1) COVID-19: Status: Acute (2) Alzheimer disease: Status: Acute (3) Hypothyroidism: Status: Acute Additional A&P Information COVID-19 Currently requiring 1.5 L nasal cannula plan to discharge her tomorrow with home O2 eval No acute exacerbation DVT prophylaxis on board Full code Tolerating her diet, consistent carb Creatinine at baseline Continue Decadron and remdesivir Bradycardia while she has sleep it improves as soon as she wakes up Attestations Medical Necessity Statement*: Discharge tomorrow Time Spent in Patient Care: less than 15 minutes Coding Level of Care Code Acute Business Development Officer for [facility] Fwd Diagnoses COVID-19 U07.1 Alzheimer disease G30.9; F02.80 Hypothyroidism E03.9
--- NOTE | 2021-11-19 09:45 | PC.NURSE ---
Patient refused breakfast this morning despite nursing and DRILLING FIELD PROFESSIONAL encouragement.
[2021-11-19] MEDS: sodium chloride 0.9% 1,000 ML 75 ML IV (10:20)
[2021-11-19] MEDS: dexamethasone 10 mg/mL INJ 6 MG IVP (17:47)
[2021-11-19] MEDS: remdesivir 100 MG in sodium chloride 0.9% (100 ml) 80 ML IV (17:47)
[2021-11-19] MEDS: trazodone 150 mg Tablet PO (19:50)
[2021-11-20] VITALS (7 sets, daily range): BP systolic 140–154; BP diastolic 72–89; PULSE 55–66; RESP 16–19; TEMP 36.4–36.9; O2SAT 87–98
[2021-11-20] MEDS: sodium chloride 0.9% 1,000 ML 75 ML IV (00:04)
[2021-11-20] MEDS: levothyroxine 112 mcg Tablet PO (05:21)
--- NOTE | 2021-11-20 09:12 | PM.DCS ---
Discharge Providers Date of Admission: 11/17/21 12:53 Date of Discharge: November 20, 2021 Attending Provider at Admission: Jessie Fried MD Attending Provider at Discharge: Jessie Fried MD Primary Care Provider: Jas Vaca MD Diagnoses at Discharge Discharge Diagnosis (1) COVID-19: Status: Acute (2) Alzheimer disease: Status: Acute (3) Hypothyroidism: Status: Acute Reason for Visit Reason for Visit: SOB, COVID Postive Hospital Course Hospital Course 55-year-old female with Down syndrome presented to the hospital with chief complaint of worsening shortness of breath,, her symptoms started a week ago before arrival in the ER, tested +11/16 for COVID at an outside facility, she was requiring 3 L of oxygen on ambulation, as per the report she has trach collar which she keeps capped, able to eat regular food in small quantity after chopping them into smaller bites, ambulatory, throughout her hospitalization she remained afebrile, no leukocytosis, CTA and chest x-ray consistent with COVID-19 related pneumonia no signs of PE. She did well on 1.52 L of oxygen throughout her hospitalization. Will be discharged home after home O2 evaluation. Her creatinine was slightly high however it improved with IV fluid hydration, her p.o. intake was poor. She was kept on IV fluids. Physical Exam Narrative: EXAM NARRATIVE: Resting comfortably 1 L nasal cannula Trach collar which is cuffed Mild signs of dehydration No acute respite distress No audible stridor or wheezing No new focal deficit Abdomen soft Discharge Data Data Completed and Pending: Completed Studies During Hospitalization Category Date Time Status CT angio chest PE protcl [id number] Stat Cat Scan 11/17/21 12:26 Completed XR chest 1V aristeo ble [id number] Stat Exams 11/17/21 09:25 Completed Vitals: Last Vital Signs Temp 97.5 F L 11/20/21 04:00 Pulse 55 L 11/20/21 08:13 Resp 16 11/20/21 08:13 BP 140/72 11/20/21 08:00 Pulse Ox 98 11/20/21 08:13 Discharge Plan Discharge Patient Disposition: Xfer Other Condition: Stable Prescriptions: New albuterol sulfate 90 mcg/actuation HFA aerosol inhaler 2 inh inhalation Q6H PRN (Reason: shortness of breath or wheezing) Qty: 8.5 RF: 0 Continued dextromethorphan-guaifenesin 10-100 mg/5 mL syrup 10 ml PO Q4H PRN (Reason: Cough) RF: 0 simethicone [Gas-X Extra Strength] 125 mg capsule 125 mg PO Q6H PRN (Reason: FLATULENCE) RF: 0 artifi.tears(hypromellose)(PF) 0.3 % drops 1 drop ophthalmic (eye) Q6H PRN (Reason: Dry Eyes) RF: 0 acetaminophen [Tylenol] 325 mg capsule 650 mg PO Q4H PRN (Reason: Pain) RF: 0 loperamide 2 mg capsule See Rx Instructions .ROUTE .COMPLEX RF: 0 triamcinolone acetonide 0.1 % cream See Rx Instructions .ROUTE .COMPLEX RF: 0 hydrocortisone 2.5 % cream See Rx Instructions .ROUTE .COMPLEX RF: 0 (DME) oxygen-air delivery systems Device See Rx Instructions .ROUTE .MEDSUPPLY Qty: 1 RF: 0 (DME) Portable Oxygen Concentrator See Rx Instructions .Route .MEDSUPPLY RF: 0 budesonide 1 mg/2 mL suspension for nebulization 1 mg inhalation BID 14 Days Qty: 56 RF: 0 allopurinol 100 mg tablet 200 mg PO DAILY@08 RF: 0 fluticasone propionate [Flonase Allergy Relief] 50 mcg/actuation spray,suspension 2 spray INTRANASAL DAILY@08 RF: 0 theophylline 300 mg capsule,extended release 24hr 150 mg PO BID@08,20 RF: 0 atorvastatin 10 mg tablet 10 mg PO DAILY@20 RF: 0 trazodone 50 mg tablet 150 mg PO BEDTIME@20 RF: 0 (DME) cologard See Rx Instructions .Route .MEDSUPPLY Qty: 1 RF: 0 ondansetron HCl [Zofran] 4 mg tablet 4 mg PO Q6H PRN (Reason: nausea and vomiting) Qty: 30 RF: 0 miconazole nitrate 2 % powder See Rx Instructions topical DAILY Qty: 85 RF: 3 albuterol sulfate 2.5 mg /3 mL (0.083 %) solution for nebulization 2.5 mg INHALATION Q2H PRN (Reason: Shortness Of Breath) Qty: 180 RF: 6 ammonium lactate 12 % Lotion See Rx Instructions .ROUTE .COMPLEX RF: 0 CeraVe Cream See Rx Instructions .ROUTE .COMPLEX RF: 0 levothyroxine 112 mcg tablet 112 mcg PO DAILY@07 RF: 0 citalopram 40 mg tablet 40 mg PO DAILY@08 RF: 0 omeprazole 40 mg capsule,delayed release(DR/EC) 40 mg PO DAILY@08 RF: 0 ketoconazole 2 % cream See Rx Instructions .ROUTE .COMPLEX RF: 0 Seroquel 25 mg Tablet 25 mg PO TID PRN (Reason: Anxiety) RF: 0 Triple Antibiotic 3.5mg-400 unit- 5,000 unit/gram Ointment 1 applic TOPICAL Q8H PRN (Reason: Rash) RF: 0 ketoconazole 2 % shampoo See Rx Instructions .ROUTE .COMPLEX RF: 0 DermaZinc Shampoo 2 % Shampoo See Rx Instructions .ROUTE .COMPLEX RF: 0 fluticasone propionate 0.05 % cream See Rx Instructions .ROUTE .COMPLEX RF: 0 Pepto-Bismol 262 mg/15 mL Suspension 524 mg PO Q4H PRN (Reason: Diarrhea) RF: 0 Fluo/Salic/[place] Tar Cream See Rx Instructions .ROUTE .COMPLEX RF: 0 Seroquel 100 mg tablet 100 mg PO BID@08,20 RF: 0 rivastigmine 4.6 mg/24 hr patch 24 hour 4.6 mg TRANSDERMA DAILY@08 RF: 0 Discharge Orders: Discharge Order (Routine); Ordered 11/20/21 Ordered By: Jessie Fried Discharge Diet: Regular Discharge Activity: Increase activity as tolerated Patient Instructions: Alzheimer Disease (DC), Hypothyroidism (DC), COVID-19 (Coronavirus Disease 2019) (DC) Discharge Attestations Time Spent in Discharge Care*: less than 30 min Quality Metrics Clinical Quality Measures During this hospital stay, did patient experience: None Coding Level of Care Code Acute [facility] DC note Diagnoses COVID-19 U07.1 Alzheimer disease G30.9; F02.80 Hypothyroidism E03.9
[2021-11-20] MEDS: allopurinol 100 mg Tablet 200 MG PO (09:43)
[2021-11-20] MEDS: pantoprazole DR 40 mg Tablet PO (09:43)
[2021-11-20] MEDS: fluticasone nasal spray 16gm Btl 2 SPRAY INTRANASAL (09:44)
--- NOTE | 2021-11-20 12:14 | PC.SOCIAL ---
IMM update IMM updated with Jovana, primary child care nurse at [facility]. Verbalized an understanding. Initialled, dated, timed, and placed in chart.
== END 2021-11-20 15:34 | disposition home or self-care (01) | DRG 177 ==
LOC: ER 08:20 → ER IP 12:54 → MEDSURG 11-18 07:41
PROVIDERS: Admitting Provider Internal Medicine; Emergency Provider Family Medicine; PCP Internal Medicine; Visit Provider Internal Medicine
DX: U07.1 COVID-19 (principal); J12.82 Pneumonia due to coronavirus disease 2019; Q90.9 Down syndrome, unspecified; G30.9 Alzheimer's disease, unspecified; F02.80 Dementia in other diseases classified elsewhere, unspecified severity, without behavioral disturbance, psychotic disturbance, mood disturbance, and anxiety; I25.10 Atherosclerotic heart disease of native coronary artery without angina pectoris; F32.A Depression, unspecified; Z86.73 Personal history of transient ischemic attack (TIA), and cerebral infarction without residual deficits; F79 Unspecified intellectual disabilities; Z93.0 Tracheostomy status; E03.9 Hypothyroidism, unspecified; D69.6 Thrombocytopenia, unspecified
CPT/HCPCS: 36415; 71045; 71275; 80048; 80053; 83615; 84145; 85025; 85378; 86140; 96365; 96375; 96376; 99285; J1100; J7030; Q9967

== ENCOUNTER → 2022-01-13 08:48 | Outpatient (BNVA) | payer MEDICARE, MEDICAID, SELFPAY | PROVIDERS: PCP Internal Medicine; Visit Provider Internal Medicine Pulmonary Disease | DX: Q90.9 Down syndrome, unspecified (principal); R06.09 Other forms of dyspnea; U09.9 Post COVID-19 condition, unspecified; Z93.0 Tracheostomy status; J44.9 Chronic obstructive pulmonary disease, unspecified | CPT/HCPCS: 99204 ==

== ENCOUNTER → 2022-03-17 10:16 | Outpatient (BNVA) | payer MEDICARE, MEDICAID, SELFPAY | PROVIDERS: PCP Internal Medicine; Visit Provider Internal Medicine Pulmonary Disease | DX: R06.09 Other forms of dyspnea (principal); U09.9 Post COVID-19 condition, unspecified; Q90.9 Down syndrome, unspecified; Z98.890 Other specified postprocedural states; Z99.81 Dependence on supplemental oxygen | CPT/HCPCS: 99214 ==

== ENCOUNTER → 2022-05-25 09:06 | Outpatient (BNVA) | payer MEDICARE, MEDICAID, SELFPAY | PROVIDERS: PCP Internal Medicine; Visit Provider Specialist | DX: Q90.9 Down syndrome, unspecified (principal); G30.9 Alzheimer's disease, unspecified; F02.80 Dementia in other diseases classified elsewhere, unspecified severity, without behavioral disturbance, psychotic disturbance, mood disturbance, and anxiety | CPT/HCPCS: 99213; 99214 ==

== ENCOUNTER 2022-08-02 11:05 | Outpatient (CLI) | payer MEDICARE, MEDICAID, SELFPAY ==
--- NOTE | 2022-08-02 11:19 | MM_ITS ---
WS: [id number] BILATERAL SCREENING DIGITAL MAMMOGRAM WITH CAD HISTORY: Encounter for wellness examination in adult COMPARISON: 07/16/2021 and 07/15/2020 Bilateral CC and MLO views submitted. Computer aided detection analyzed. Breast composition: There are scattered areas of fibroglandular density. No suspicious masses, microc alcifications or architectural distortion. MM/[place] [id number] IMPRESSION: BI-RADS: 1-Negative FOLLOW UP: 1 Year Follow-up
== END 2022-08-02 11:06 | disposition home or self-care (01) ==
LOC: RAD 11:06
PROVIDERS: PCP Internal Medicine; Visit Provider Internal Medicine
DX: Z12.31 Encounter for screening mammogram for malignant neoplasm of breast (principal)
CPT/HCPCS: 77067

== ENCOUNTER → 2022-11-03 14:46 | Outpatient (BNVA) | payer MEDICARE, MEDICAID, SELFPAY | PROVIDERS: PCP Internal Medicine; Visit Provider Emergency Medicine | DX: R05.9 Cough, unspecified (principal); R09.02 Hypoxemia | CPT/HCPCS: 71046; 87400 ==

== ENCOUNTER 2022-11-07 14:20 | Outpatient (CLI) | payer MEDICARE, MEDICAID, SELFPAY ==
--- NOTE | 2022-11-07 14:28 | XR_ITS ---
WS: [id number] SCREENING DEXA SCAN [place] CLINICAL INFORMATION: ASYMPTOMATIC POSTMENOPAUSAL COMPARISON: None. FINDINGS: The L1-L4 bone mineral density measures 1.028 g/cm2. This corresponds to a T score score of -1.3 and Z score of -0.7. Left femoral neck bone mineral density measures 0.759 g/cm2. This corresponds to a T score of -2.0 an d Z score of -1.5. Right femoral neck bone mineral density measures 0.728 g/cm2. This corresponds to a T score -2.2of an d Z score of -1.7. Mean femoral neck bone mineral density measures 0.744 g/cm2. This corresponds to a T score of -2.1 an d Z score of -1.6. XR/XR DEXA axial skeleton* [id number] IMPRESSION: Osteopenia lumbar spine. Osteopenia femoral necks. Patient's FRAX calculated 10 year probability for major osteoporotic fracture i s 16.9 % and osteoporotic hip fracture is 4.1%.
== END 2022-11-07 14:21 | disposition home or self-care (01) ==
LOC: RAD 14:22
PROVIDERS: PCP Internal Medicine; Visit Provider Internal Medicine
DX: Z78.0 Asymptomatic menopausal state (principal); M85.88 Other specified disorders of bone density and structure, other site
CPT/HCPCS: 77080

== ENCOUNTER 2022-11-17 10:18 | Outpatient (CLI) | payer MEDICARE, MEDICAID, SELFPAY ==
--- NOTE | 2022-11-17 10:28 | USCV_ITS ---
Alla Milton Age: 56 Gender: F : 1965 Exam Date: 11/17/2022 11:19 Ordering Phys: Nichole Corey MD Technologist: Driss Jensen Exam Location: [facility] [place] Indication: down syndrome BP: 130 / 70 HR: 60 Rhythm: Sinus Technical Quality: Adequate MEASUREMENTS (Male / Female) Normal Values 2D ECHO LV Diastolic Diameter PLAX 4.8 cm 4.2 - 5.9 / 3.9 - 5.3 cm LV Systolic Diameter PLAX 2.9 cm IVS Diastolic Thickness 0.8 cm 0.6 - 1.0 / 0.6 - 0.9 cm IVS Systolic Thickness 1.0 cm LVPW Diastolic Thickness 0.8 cm 0.6 - 1.0 / 0.6 - 0.9 cm LVPW Systolic Thickness 1.4 cm LVOT Diameter 2.0 cm LV Ejection Fraction 2D Teich 71.3 % LV Ejection Fraction MOD 2C 73.1 % LV Ejection Fraction 2C AL 74.7 % LA Diameter 2.4 cm LA Width 2.6 cm LA Height 3.7 cm RA Width 2.6 cm RA Height 4.0 cm Aorta at Sinotubular Diameter 1.7 cm IVC Diameter 1.4 cm M-MODE Aortic Annulus Diameter 2.5 cm LA Ao Ratio MM 0.9 MV E Point Septal Separation 0.5 cm DOPPLER AV Peak Velocity 209.7 cm/s LVOT Peak Velocity 108.0 cm/s AV Area Cont Eq vti 1.7 cm squared AV Area Cont Eq pk 1.6 cm squared MV Peak Velocity 137.0 cm/s MV Area PHT 3.8 cm squared Mitral E to A Ratio 1.1 MV E' Velocity 70.3 cm/s Mitral E to MV E' Ratio 10.2 Mitral E to LV E' Lateral Ratio 10.0 Mitral E to LV E' Septal Ratio 10.4 TR Peak Velocity 302.1 cm/s TR Peak Gradient 36.5 mmHg TR Mean Velocity 234.2 cm/s TR Mean Gradient 24.4 mmHg TR Velocity Time Integral 84.8 cm Right Atrial Pressure 3.0 mmHg Pulmonary Artery Systolic Pressu 39.5 mmHg RV Acceleration Time 0.1 s RV Ejection Time 0.3 s RV AcT/ET 0.3 FINDINGS Left Ventricle Left ventricle is normal in size. LV systolic function is normal with EF of 55 to 60%. No regional wall motion abnormalities are seen. Grade 1 diastolic dysfunction Right Ventricle Normal in size and function Right Atrium Normal in size Left Atrium Normal in size Mitral Valve Structurally normal mitral valve. Trace mitral regurgitation. Aortic Valve Not well visualized. Mild aortic stenosis with aortic valve area of 1.7 cm. Mean gradient across aortic valve of 9 mmHg. Tricuspid Valve Mild tricuspid regurgitation. Insufficient TR jet to calculate RVSP Pulmonic Valve Not well visualized Pericardium Normal Aorta Normal in size IVC Appears to be normal CONCLUSIONS LV systolic function is normal with EF of 55 to 60%. Grade 1 diastolic dysfunction Trace mitral regurgitation Mild aortic stenosis Mild tricuspid regurgitation No comparison studies are available Ceferino Tomlinson MD (Electronically Signed) Final Date: 19 November 2022 20:50 S
== END 2022-11-17 10:19 | disposition home or self-care (01) ==
PROVIDERS: PCP Internal Medicine; Visit Provider Internal Medicine
DX: Q90.9 Down syndrome, unspecified (principal); I35.0 Nonrheumatic aortic (valve) stenosis; I34.0 Nonrheumatic mitral (valve) insufficiency; I07.1 Rheumatic tricuspid insufficiency
CPT/HCPCS: 93306

== ENCOUNTER → 2023-04-03 09:03 | Outpatient (BNVA) | payer MEDICARE, MEDICAID, SELFPAY | PROVIDERS: PCP Internal Medicine; Visit Provider Podiatrist Foot & Ankle Surgery | DX: I73.9 Peripheral vascular disease, unspecified (principal); L60.3 Nail dystrophy; M21.611 Bunion of right foot | CPT/HCPCS: 99213 ==

== ENCOUNTER 2023-04-21 08:20 | Emergency (ER) | payer MEDICARE, MEDICAID, SELFPAY ==
--- NOTE | 2023-04-21 08:25 | XRR_ITS ---
PROCEDURE INFORMATION: Exam: XR Chest Exam date and time: 04/21/2023 8:33 AM Age: 57 years old Clinical indication: Cough with hemorrhage; Prior surgery; Surgery date: 6+ months; Surgery type: Trach surgery 2019 per emr. ; Additional info: Dyspnea/cough; Blood in trach, cough. History of trach surgery on unknown date. TECHNIQUE: Imaging protocol: Radiologic exam of the chest. Views: 1 view. COMPARISON: CR XR chest 2V* [id number] 11/03/2022 3:04 PM FINDINGS: Tubes, catheters and devices: Tracheostomy tube is in place above the kellen. Lungs: Right lower lobe interstitial congestion. No consolidation. Pleural spaces: Unremarkable. No pleural effusion. No pneumothorax. Heart/Mediastinum: Unremarkable. No cardiomegaly. Bones/joints: Unremarkable. Other findings: Similar findings are seen comparing to prior examination XR/XR chest 1V portable [id number] IMPRESSION: 1. Right lower lobe interstitial congestion 2. Tracheostomy tube above the kellen 3. Otherwise No acute findings.
[2023-04-21 08:28] VITALS: BP 132/78; PULSE 95; RESP 14; TEMP 37.6; O2SAT 96; BMI 34.5
[2023-04-21 08:34] VITALS: BP 132/78; PULSE 96; RESP 14; O2SAT 95
--- NOTE | 2023-04-21 08:42 | W.ED.GENADLT ---
HPI - General Adult General: Chief complaint: Upper Respiratory Infection Stated complaint: sore throat, blood in trach Time Seen by Provider: 04/21/23 08:25 Source: patient and other (Caregiver) Mode of arrival: ambulatory History of Present Illness: 57-year-old female presents emergency room complaining of a sore throat blood-tinged sputum from the tracheostomy. Patient has a tracheostomy that was placed several decades ago when she had a stroke related to the use of contraceptives. Evidently there has not stick it out it was then long enough there is no scar tissue that there is a potential that it would not heal well. She generally leaves it. Overnight she is complaining of a sore throat and also some fever and noticed the bloody urine earlier tracheostomy. She does wear oxygen at night but does not wear it during the day her oxygen sats are in the mid 90s. Onset (ago): hour(s) Severity: mild Relieving factors: none Exacerbating factors: none Associated symptoms: Reports cough; Deny chest pain, confusion, decreased appetite, dyspnea, fevers/chills, headache(s), malaise, nausea, rash, palpitations, seizures, short of breath, syncope, vomiting or weakness Review of Systems Const: Reports: fever(s); Denies: chills or malaise ENMT: Reports: throat pain; Denies: ear or mastoid pain, nasal discharge or nasal congestion Card: Denies: chest pain, palpitations or syncope Resp: Reports: productive cough and hemoptysis; Denies: dyspnea GI: Denies: abdominal pain, nausea or vomiting : Denies: dysuria, urinary frequency or urinary urgency Skin/Breast: Denies: rash Neuro: Denies: headache(s) or confusion PFSH ED PFSH: Medical History Alzheimer disease Coronary artery disease Depression Hypothyroidism Incontinence Stroke Trisomy 21 Surgical History Hx of cholecystectomy (~2011) Hx of myringotomy (~02/24/16) with tube placement Hx of tracheostomy (~1987) Hx of tubal ligation (~1999) Family History Other Unknown family medical history Social History Smoking and tobacco status: never smoked Second hand smoke exposure: No Alcohol intake: never Substance/Drug Use: never Additional social history: - Tobacco use: Never Alcohol use: Never Drug use: Never Physical Exam Const: GENERAL APPEARANCE: cooperative and comfortable HENMT: COMMON NORMALS: normocephalic, atraumatic and hearing grossly normal bilaterally HEAD & SCALP: normocephalic and atraumatic Resp: COMMON NORMALS: normal respiratory effort, No retractions, No use of accessory muscles and clear to auscultation bilaterally AUSCULTATION: clear to auscultation bilaterally Cardio: COMMON NORMALS: regular rate, regular rhythm and No murmurs present (Cardio) RATE: regular rate RHYTHM: regular rhythm GI: COMMON NORMALS: Soft to palpation and No hepatosplenomegaly present AUSCULTATION: Yes normoactive bowel sounds PALPATION: Yes Soft to palpation, No Tenderness to palpation present (GI), No Guarding due to palpation present (GI) and Yes No hepatosplenomegaly present Extremity: COMMON NORMALS: normal to inspection, capillary refill normal, no clubbing, cyanosis or edema, no calf tenderness and no pedal edema Skin: COMMON NORMALS: no rashes or lesions noted GENERAL SKIN EXAM: no rashes or lesions noted Course Vital Signs: Vital signs: Vital Signs Temperature 99.7 F H 04/21/23 08:28 Pulse Rate 94 04/21/23 09:29 Respiratory Rate 16 04/21/23 09:29 Blood Pressure 135/94 04/21/23 09:29 Pulse Oximetry 94 04/21/23 09:46 Oxygen Delivery Me thod Room Air 04/21/23 09:29 MDM - General Adult Medical Decision Making Right lower lobe pneumonia on chest x-ray. Patient desats while sleeping is usually on oxygen at home we did have her do an ambulatory oxygen test and she passed. This consistent with what is otherwise in the chart. We will discharge her home on Levaquin. Have her follow-up with her primary care doctor in 7 to 10 days return if she has worsening problems. If hemoptysis worsens or persist she will need further work-up. If is worsening return to the emergency room if persisting intermittently can follow-up through Dr. Hester. Medical Records I reviewed the patient's medical records. Lab Data I reviewed the patient's lab results. 04/21/23 10:32 04/21/23 10:32 Radiology Impressions Chest X-Ray 04/21/23 08:25 IMPRESSION: 1. Right lower lobe interstitial congestion 2. Tracheostomy tube above the kellen 3. Otherwise No acute findings. Laboratory Results WBC 8.7 10^3/uL (4.0-10.0) 04/21/23 10:32 RBC 3.75 10^6/uL (4.1-5.3) L 04/21/23 10:32 Hgb 13.6 g/dL (11.5-15.3) 04/21/23 10:32 Hct 40.8 % (37.0-47.0) 04/21/23 10:32 MCV 108.8 fl (81-99) H 04/21/23 10:32 MCH 36.3 pg (28.0-34.0) H 04/21/23 10:32 MCHC 33.3 g/dL (30.0-36.0) 04/21/23 10:32 RDW 14.1 % (12.1-15.1) 04/21/23 10:32 Plt Count 110 10^3/cmm (130-400) L 04/21/23 10:32 MPV 10.1 fL (7.4-10.4) 04/21/23 10:32 Neut % (Auto) 89.2 % 04/21/23 10:32 Lymph % (Auto) 4.1 % 04/21/23 10:32 [place] % (Auto) 5.6 % 04/21/23 10:32 Eos % (Auto) 0.1 % 04/21/23 10:32 Baso % (Auto) 0.5 % 04/21/23 10:32 Neut # (Auto) 7.77 10^3/uL (1.8-7.7) H 04/21/23 10:32 Lymph # (Auto) 0.4 10^3/uL (0.8-4.8) L 04/21/23 10:32 [place] # (Auto) 0.5 10^3/uL (0.2-0.9) 04/21/23 10:32 Eos # (Auto) 0.0 10^3/uL (0.0-0.8) 04/21/23 10:32 Baso # (Auto) 0.0 10^3/uL (0.0-0.1) 04/21/23 10:32 Nucleated RBC % (auto) 0 % 04/21/23 10:32 Nucleated RBCs # 0.0 /100WBC 04/21/23 10:32 Sodium 136 mmol/L (136-145) 04/21/23 10:32 Potassium 4.0 mmol/L (3.5-5.1) 04/21/23 10:32 Chloride 101 mmol/L (98-107) 04/21/23 10:32 Carbon Dioxide 27 mmol/L (22-29) 04/21/23 10:32 Anion Gap 12.0 (5-19) 04/21/23 10:32 BUN 21 mg/dL (6-20) H 04/21/23 10:32 Creatinine 1.0 mg/dL (0.5-0.9) H 04/21/23 10:32 GFR Calculation 57.6 mL/min (90-130) L 04/21/23 10:32 Glucose 94 mg/dL (65-115) 04/21/23 10:32 Calculated Osmolality 285 mOsm/kg (285-295) 04/21/23 10:32 Calcium 8.8 mg/dL (8.5-10.5) 04/21/23 10:32 Total Bilirubin 0.4 mg/dL (0.15-1.2) 04/21/23 10:32 AST 22 U/L (0-32) 04/21/23 10:32 ALT 12 U/L (0-33) 04/21/23 10:32 Alkaline Phosphatase 94 U/L (35-105) 04/21/23 10:32 Total Protein 6.6 g/dL (6.6-8.7) 04/21/23 10:32 Albumin 3.6 g/dL (3.5-5.2) 04/21/23 10:32 Globulin 3.0 g/dL (1.3-4.6) 04/21/23 10:32 Discharge Plan Discharge Patient Disposition: Home Clinical Impression: Pneumonia Condition: Stable Prescriptions: New levofloxacin 750 mg tablet 750 mg PO DAILY 7 Days Qty: 7 0RF No Action artifi.tears(hypromellose)(PF) 0.3 % drops 1 drop ophthalmic (eye) Q6H PRN (Reason: Dry Eyes) acetaminophen [Tylenol] 325 mg capsule 650 mg PO Q4H PRN (Reason: Pain) loperamide 2 mg capsule See Rx Instructions .ROUTE .COMPLEX Rx Instructions: 4MG PO AFTER 1ST LOOSE STOOL FOLLOWED BY 2MG AFTER EACH LOOSE STOOL DIRECTED triamcinolone acetonide 0.1 % cream See Rx Instructions .ROUTE .COMPLEX Rx Instructions: APPLY TO RASH ON ARMS AND LEGS EVERY 12 HOURS NEEDED hydrocortisone 2.5 % cream See Rx Instructions .ROUTE .COMPLEX Rx Instructions: APPLY TO AFFECTED AREA EVERY 8 HOURS NEEDED FOR RASH (DME) oxygen-air delivery systems Device See Rx Instructions .ROUTE .MEDSUPPLY Qty: 1 Rx Instructions: 3 liters at night (DME) Portable Oxygen Concentrator See Rx Instructions .Route .MEDSUPPLY Rx Instructions: 3 liters at bedtime to take while she's at camp May 02 through May 07 albuterol sulfate 2.5 mg /3 mL (0.083 %) solution for nebulization 2.5 mg inhalation Q6H PRN (Reason: shortness of breath or wheezing) fluticasone propionate [Flonase Allergy Relief] 50 mcg/actuation spray,suspension 2 spray INTRANASAL DAILY@08 diclofenac sodium [Voltaren Arthritis Pain] 1 % gel 4 g topical QID Qty: 100 4RF Rx Instructions: apply to single knee, ankle, foot; for foot includes sole/toes/top of foot levofloxacin 750 mg tablet 750 mg PO DAILY 7 Days Qty: 7 0RF ondansetron HCl [Zofran] 4 mg tablet 4 mg PO Q6H PRN (Reason: nausea and vomiting) Qty: 30 0RF miconazole nitrate 2 % powder See Rx Instructions topical DAILY Qty: 85 3RF Rx Instructions: 1 application to belly fold topical daily as needed theophylline 300 mg capsule,extended release 24hr 150 mg PO BID@08,20 Qty: 90 3RF fluocinonide 0.05 % cream See Rx Instructions .ROUTE .COMPLEX Qty: 30 0RF Dose Instruction: Mix with equal part Clotosc (coal tar & Salicyclic Acid) THEN APPLY TO plaque EVERY TWELVE HOURS NEEDED ON thick AREAS of psoriasis Rx Instructions: Mix with equal part Clotosc (coal tar & Salicyclic Acid) THEN APPLY TO plaque EVERY TWELVE HOURS NEEDED ON thick AREAS of psoriasis dextromethorphan-guaifenesin [Tussin DM] 10-100 mg/5 mL syrup See Rx Instructions .ROUTE .COMPLEX Qty: 237 12RF Dose Instruction: give 10ML BY MOUTH EVERY 4 HOURS NEEDED FOR cough AND congestion Rx Instructions: give 10ML BY MOUTH EVERY 4 HOURS NEEDED FOR cough AND congestion quetiapine 25 mg tablet See Rx Instructions .ROUTE .COMPLEX Qty: 90 12RF Dose Instruction: TAKE ONE TABLET BY MOUTH EVERY 8 HOURS NEEDED FOR ANXIETY *must call RN BEFORE admin* Rx Instructions: TAKE ONE TABLET BY MOUTH EVERY 8 HOURS NEEDED FOR ANXIETY *must call RN BEFORE admin* ketoconazole 2 % shampoo See Rx Instructions .ROUTE .COMPLEX Qty: 120 6RF Rx Instructions: APPLY topically 2-3 TIMES A WEEK ALTERNATING WITH DERMAZINC trazodone 50 mg tablet 150 mg PO BEDTIME@20 Qty: 180 3RF omeprazole 40 mg capsule,delayed release(DR/EC) 40 mg PO DAILY@08 Qty: 90 3RF atorvastatin 10 mg tablet 10 mg PO DAILY@20 Qty: 30 6RF levothyroxine 112 mcg tablet 112 mcg PO DAILY@07 Qty: 30 3RF quetiapine [Seroquel] 100 mg tablet 100 mg PO BID@08,20 Qty: 60 3RF allopurinol 100 mg tablet 200 mg PO DAILY@08 Qty: 60 3RF simethicone [Gas Relief Extra Strength] 125 mg capsule See Rx Instructions .ROUTE .COMPLEX Qty: 20 5RF Dose Instruction: TAKE ONE CAPSULE BY MOUTH EVERY 6 HOURS NEEDED FOR flatulence Rx Instructions: TAKE ONE CAPSULE BY MOUTH EVERY 6 HOURS NEEDED FOR flatulence (DME) cologard See Rx Instructions .Route .MEDSUPPLY Qty: 1 0RF Rx Instructions: As directed ketoconazole 2 % cream 1 applic topical BID Qty: 60 3RF Rx Instructions: Apply twice daily to abdomen and buttocks for 4 weeks then as needed for flares rivastigmine [Exelon Patch] 4.6 mg/24 hour patch 24 hour See Rx Instructions .ROUTE .COMPLEX Qty: 30 5RF Dose Instruction: APPLY ONE PATCH topically DAILY AT 8AM Rx Instructions: APPLY ONE PATCH topically DAILY AT 8AM ammonium lactate 12 % Lotion See Rx Instructions .ROUTE .COMPLEX Rx Instructions: APPLY TOPICALLY TO AFFECTED AREA BID. CeraVe Cream See Rx Instructions .ROUTE .COMPLEX Rx Instructions: APPLY TO HANDS BID AT LEAST AND MORE IF NEEDED FOR DRY SKIN citalopram 40 mg tablet 40 mg PO DAILY@08 Triple Antibiotic 3.5mg-400 unit- 5,000 unit/gram Ointment 1 applic TOPICAL Q8H PRN (Reason: Rash) DermaZinc Shampoo 2 % Shampoo See Rx Instructions .ROUTE .COMPLEX Rx Instructions: APPLY topically THREE TIMES A WEEK Pepto-Bismol 262 mg/15 mL Suspension 524 mg PO Q4H PRN (Reason: Diarrhea) Fluo/Salic/Teller Tar Cream See Rx Instructions .ROUTE .COMPLEX Rx Instructions: apply every 12 hours if needed on thick areas of psoriasis albuterol sulfate 90 mcg/actuation HFA aerosol inhaler 2 inh inhalation Q6H PRN (Reason: shortness of breath or wheezing) Qty: 8.5 0RF Discharge Orders: Discharge ED (Routine); Ordered 04/21/23 Ordered By: Khurram Sapp Referrals: Nichole Corey MD [Primary Care Provider] - Discharge Diet: Usual diet Discharge Activity: Increase activity as tolerated Patient Instructions: Opioid Safety, Pain Management Activity Restrictions/Additional Instructions: You were seen today for hemoptysis from your tracheostomy. Chest x-ray shows right lower lobe pneumonia. Recommend antibiotics 1 daily for 7 days. follow-up with your primary care doctor in 7 to 10 days to reevaluate. Coding Level of Care Code ED V[employer] Feeder for Nichelle Correia
[2023-04-21 09:29] VITALS: BP 135/94; PULSE 94; RESP 16; O2SAT 92
[2023-04-21 09:46] VITALS: O2SAT 94
[2023-04-21 10:39] LABS: Basophils % 0.5 %; Eosinophils % 0.1 %; Hematocrit 40.8 % (37.0-47.0); Hemoglobin 13.6 g/dL (11.5-15.3); Lymphocytes # 0.4 10^3/uL (0.8-4.8); Lymphocytes % 4.1 %; Mean Corpuscular HGB Conc 33.3 g/dL (30.0-36.0); Mean Corpuscular Hemoglobin 36.3 pg (28.0-34.0); Mean Corpuscular Volume 108.8 fl (81-99); Mean Platelet Volume 10.1 fL (7.4-10.4); Monocytes # 0.5 10^3/uL (0.2-0.9); Monocytes % 5.6 %; Neutrophils # 7.77 10^3/uL (1.8-7.7); Neutrophils % 89.2 %; Nucleated Red Blood Cells % 0 %; Platelet Count 110 10^3/cmm (130-400); Red Blood Count 3.75 10^6/uL (4.1-5.3); Red Cell Distribution Width 14.1 % (12.1-15.1); White Blood Count 8.7 10^3/uL (4.0-10.0)
[2023-04-21 10:56] LABS: Alanine Aminotransferase 12 U/L (0-33); Albumin Level 3.6 g/dL (3.5-5.2); Alkaline Phosphatase 94 U/L (35-105); Aspartate Amino Transferase 22 U/L (0-32); Blood Urea Nitrogen 21 mg/dL (6-20); Calcium 8.8 mg/dL (8.5-10.5); Carbon Dioxide 27 mmol/L (22-29); Chloride 101 mmol/L (98-107); Glomerular Filtration Rate 57.6 mL/min (90-130); Glucose 94 mg/dL (65-115); Osmolality Calculated 285 mOsm/kg (285-295); Sodium 136 mmol/L (136-145); Total Bilirubin 0.4 mg/dL (0.15-1.2); Total Protein 6.6 g/dL (6.6-8.7)
== END 2023-04-21 11:13 | disposition home or self-care (01) ==
PROVIDERS: Emergency Provider Family Medicine; PCP Internal Medicine
DX: J18.9 Pneumonia, unspecified organism (principal); R04.2 Hemoptysis; Z93.0 Tracheostomy status; Z99.81 Dependence on supplemental oxygen
CPT/HCPCS: 71045; 80053; 85025; 99284

== ENCOUNTER 2023-04-26 13:39 | Outpatient (CLI) | payer MEDICARE, MEDICAID, SELFPAY ==
--- NOTE | 2023-04-26 13:50 | XR_ITS ---
WS: [id number] Exam: XR chest 2V* [id number] Date/Time of Exam: 04/26/2023 1:52 PM Reason For Exam: PNEUMONIA, BACTERIAL Comparison 04/21/2023. There is still infiltrate in the upper lobe of the right lung unchanged. Improved infiltrate seen mady ng the right heart border. The left lung is generally clear. Normal cardiomediastinal silhouette. A t racheostomy tube is in place. No pleural effusion or pneumothorax. XR/XR chest 2V* [id number] IMPRESSION: 1. Focal infiltrate in the upper lobe of the right lung. No change. Improved in filtrate along the right heart border since the last exam.
== END 2023-04-26 13:40 | disposition home or self-care (01) ==
LOC: RAD 13:44
PROVIDERS: PCP Internal Medicine; Visit Provider Internal Medicine
DX: J15.9 Unspecified bacterial pneumonia (principal); R91.8 Other nonspecific abnormal finding of lung field
CPT/HCPCS: 71046

== ENCOUNTER → 2023-05-24 09:14 | Outpatient (BNVA) | payer MEDICARE, MEDICAID, SELFPAY | PROVIDERS: PCP Internal Medicine; Visit Provider Specialist | DX: G30.9 Alzheimer's disease, unspecified (principal); F02.80 Dementia in other diseases classified elsewhere, unspecified severity, without behavioral disturbance, psychotic disturbance, mood disturbance, and anxiety; Q90.9 Down syndrome, unspecified | CPT/HCPCS: 99213 ==

== ENCOUNTER 2023-07-17 09:04 | Outpatient (CLI) | payer MEDICARE, MEDICAID, SELFPAY ==
--- NOTE | 2023-07-17 09:10 | US_ITS ---
WS: [id number] US trans abdominal [id number] HISTORY: POSTMENOPAUSAL BLEEDING COMPARISON: 08/29/2017 Uterus: 7.2 cm x 3.3 cm x 2.4 cm. Mildly atrophic, anteverted uterus. No fibroid or mass. There is a tiny amount of complex signal in the cervix with no increased vascularity. This may be a s mall amount of mucus. With history of vaginal bleeding neoplasm cannot be excluded. This area does no t appear to be cystic. Hypoechoic area measures 1.7 x 0.7 cm. Endometrium: 0.2 cm. Atrophic. No increased vascularity. Right ovary: 2.5 cm x 1.7 cm x 1.7 cm. Normal size and vascularity, no cystic or solid masses. Left ovary: 2.3 cm x 1.8 cm x 1.8 cm. Normal size and vascularity, no cystic or solid masses. No free fluid in the cul-de-sac. Note: Trans vaginal ultrasound was attempted without success. Unable to insert the vaginal probe into the vagina. IMPRESSION: 1. Atrophic endometrium. 2. No endometrial abnormality identified. 3. Hypoechoic area measuring 1.7 x 0.7 cm in the cervix. This may be a small amount of retained mucus or blood products. There is no increased vascularity. Cannot completely exclude early cervical neopl asm but thought less likely.
== END 2023-07-17 09:05 | disposition home or self-care (01) ==
PROVIDERS: PCP Internal Medicine; Visit Provider Internal Medicine
DX: N95.0 Postmenopausal bleeding (principal); N85.8 Other specified noninflammatory disorders of uterus
CPT/HCPCS: 76830; 76856

== ENCOUNTER → 2023-07-27 09:00 | Outpatient (BNVA) | payer MEDICARE, MEDICAID, SELFPAY | PROVIDERS: PCP Internal Medicine; Referring Provider Internal Medicine; Visit Provider Nurse Practitioner Women's Health | DX: N95.0 Postmenopausal bleeding (principal) | CPT/HCPCS: 87624 ==

== ENCOUNTER 2023-08-28 11:51 | Outpatient (CLI) | payer MEDICARE, MEDICAID, SELFPAY ==
--- NOTE | 2023-08-28 11:56 | MM_ITS ---
WS: [id number] BILATERAL 2D DIGITAL SCREENING MAMMOGRAPHY WITH CAD CLINICAL INFORMATION: SCREENING HISTORY: Screening mammogram. No current complaints. COMPARISON: 08/02/2022 TECHNIQUE: Bilateral CC and MLO views. FINDINGS: Scattered fibroglandular densities bilaterally. No suspicious focal mass, asymmetry, calcifications, or architectural distortion. No evidence of malignancy. IMPRESSION: MM/[place] [id number] BI-RADS: 1-Negative FOLLOW UP: 1 Year Follow-up Recommend return to annual screening mammography.
== END 2023-08-28 11:52 | disposition home or self-care (01) ==
LOC: RAD 11:51
PROVIDERS: PCP Internal Medicine; Visit Provider Internal Medicine
DX: Z12.31 Encounter for screening mammogram for malignant neoplasm of breast (principal)
CPT/HCPCS: 77067

== ENCOUNTER 2023-09-29 08:36 | Outpatient (CLI) | payer MEDICARE, MEDICAID, SELFPAY ==
--- NOTE | 2023-09-29 08:45 | MR_ITS ---
WS: [id number] MRI PELVIS WITH AND WITHOUT CONTRAST. COMPARISON: 07/17/2023 Multiplanar, multisequence imaging is performed with and without contrast. MultiHance 16 mL IV. Comparison: Pelvic ultrasound 07/17/2023. This study was technically difficult. Patient was unable to understand and cooperate with all directi ons. There is motion artifact. Urinary bladder was not completely emptied prior to the examination wh ich causes distortion and abnormal position of the uterus. The uterus is midline and small caliber. The endometrium is atrophic. There is no mass or abnormal en hancement. There is a small 5 to 6 mm nonenhancing hyperintense nodule towards the lower uterine and cervical segment. This is probably a small mucous retention cyst. There is no enhancement. The cervix is negative. Mesorectal fat is normal. There is no free fluid or adenopathy within the and pelvis. Urinary bladder is negative. Both ovaries are very small caliber difficult to visualized. No adnexal masses. IMPRESSION: 1. Thin atrophic endometrium measuring 3 mm. No masses or abnormal enhancement. 2. There is a small nabothian cyst at the endocervical junction. There is no enhancement. 3. No free fluid or adnexal masses.
[2023-09-29] MEDS: gadobenate dimeglumine 20 mL vial IV (09:06)
== END 2023-09-29 08:37 | disposition home or self-care (01) ==
LOC: RAD 08:37
PROVIDERS: PCP Internal Medicine; Visit Provider Obstetrics & Gynecology
DX: N95.0 Postmenopausal bleeding (principal); N88.8 Other specified noninflammatory disorders of cervix uteri
CPT/HCPCS: 72197; A9577

== ENCOUNTER 2023-11-21 09:48 | Outpatient (CLI) | payer MEDICARE, MEDICAID, SELFPAY ==
--- NOTE | 2023-11-21 09:52 | USCV_ITS ---
Yoan Alla Age: 57 Gender: F : 1965 Exam Date: 11/21/2023 10:12 Ordering Phys: Nichole Corey MD Technologist: CLAUDETTE [place] [facility] [place]: AORTIC STENOSIS BP: 112 / 60 HR: 58 Rhythm: Sinus Technical Quality: Adequate MEASUREMENTS (Male / Female) Normal Values 2D ECHO LVOT Diameter 2.0 cm LV Ejection Fraction MOD 2C 57.7 % LV Ejection Fraction 2C AL 58.0 % LA Diameter 2.6 cm LA Width 3.3 cm LA Height 3.8 cm RA Width 3.3 cm RA Height 3.8 cm Aorta at Sinotubular Diameter 2.1 cm IVC Diameter 1.3 cm M-MODE Aortic Annulus Diameter 2.6 cm LA Ao Ratio MM 1.0 MV E Point Septal Separation 0.6 cm DOPPLER AV Peak Velocity 196.0 cm/s LVOT Peak Velocity 104.0 cm/s AV Area Cont Eq vti 1.6 cm squared AV Area Cont Eq pk 1.6 cm squared MV Peak Velocity 119.0 cm/s MV Area PHT 3.1 cm squared Mitral E to A Ratio 1.2 MV E' Velocity 68.0 cm/s Mitral E to MV E' Ratio 11.2 Mitral E to LV E' Lateral Ratio 11.1 Mitral E to LV E' Septal Ratio 11.4 TR Peak Velocity 174.5 cm/s TR Peak Gradient 12.2 mmHg TR Mean Velocity 155.6 cm/s TR Mean Gradient 9.9 mmHg TR Velocity Time Integral 70.0 cm TV Peak E Velocity 56.0 cm/s Right Atrial Pressure 3.0 mmHg Pulmonary Artery Systolic Pressu 15.2 mmHg PV Peak Velocity 113.0 cm/s RV Acceleration Time 0.1 s RV Ejection Time 0.3 s RV AcT/ET 0.4 FINDINGS Left Ventricle Normal left ventricular size and systolic function, EF 59 %. No regional wall motion abnormalities. Right Ventricle The right ventricle is normal in size and function. Right Atrium The right atrium is normal in size. Left Atrium Mildly increased left atrial size. Mitral Valve Mild mitral annular calcification. Aortic Valve Mild aortic valve stenosis. Peak velocity of 1.96 m/s with a peak gradient of 15 and a mean gradient of 8 mmHg.. Calculated aortic valve area of 1.6 cm squared. The aortic leaflets could not be visualized well Tricuspid Valve No gross abnormalities noted Pulmonic Valve Pulmonic valve not well visualized. Pericardium Normal pericardium without effusion. Aorta Normal ascending aorta dimension. IVC Normal inferior vena cava. CONCLUSIONS Normal left ventricular size and systolic function, EF 59 %. No regional wall motion abnormalities. Mild aortic valve stenosis. Peak velocity of 1.96 m/s with a peak gradient of 15 and a mean gradient of 8 mmHg.. Calculated aortic valve area of 1.6 cm squared. The aortic leaflets could not be visualized well. Mild mitral annular calcification. Mildly increased left atrial size. There is no pericardial effusion. There are no intracardiac masses. Compared to the previous study from 11/17/2022, there may not be significant change Dr Latrice Delgadillo MD FAC (Electronically Signed) Final Date: 21 November 2023 15:44 S
== END 2023-11-21 09:49 | disposition home or self-care (01) ==
LOC: RAD 09:49
PROVIDERS: PCP Internal Medicine; Visit Provider Internal Medicine
DX: I35.0 Nonrheumatic aortic (valve) stenosis (principal); I34.81 Nonrheumatic mitral (valve) annulus calcification
CPT/HCPCS: 93306

== ENCOUNTER → 2023-11-22 09:01 | Outpatient (BNVA) | payer MEDICARE, MEDICAID, SELFPAY | PROVIDERS: PCP Internal Medicine; Visit Provider Specialist | DX: G30.9 Alzheimer's disease, unspecified (principal); F02.80 Dementia in other diseases classified elsewhere, unspecified severity, without behavioral disturbance, psychotic disturbance, mood disturbance, and anxiety | CPT/HCPCS: 99213 ==

== ENCOUNTER 2023-12-26 08:36 | Outpatient (CLI) | payer MEDICARE, MEDICAID, SELFPAY ==
--- NOTE | 2023-12-26 08:42 | CT_ITS ---
WS: [id number] CT NECK WITH CONTRAST HISTORY: CERVICALGIA/CONGENITAL SUBGLOTTIC STENOSIS TECHNIQUE: Contiguous 2 mm axial images are performed through the neck with intravenous contrast. Sag ittal and coronal reformats are also submitted. All CT scans at [facility] use at least one o f these dose optimization techniques: automated exposure control; mA and/or kV adjustment per patient size (includes targeted exams where dose is matched to clinical indication); or iterative reconstruc tion. CONTRAST: CONTRAST: Omnipaque 350; 100 mL IV. DLP: 136.98 mGy.cm COMPARISON: 12/12/2018 Tracheostomy remains midline and terminates above the kellen. No stenosis or soft tissue obscuration involving the distal trachea. There is soft tissue nearly completely obscuring and obliterating the s ubglottic airway. Slitlike subglottic airway measures 4.2 mm at its maximum. Stenosis begins at the l evel of the glottis and extends subglottic. Torus tubarius and the parapharyngeal fat are normal. There are small cervical chain lymph nodes but no adenopathy. The some of the soft tissues are difficult to evaluate completely due to motion artifa ct and breathing artifact. Chronic opacification LEFT maxillary sinus. No osseous destruction. Progression of degenerative leal es in the cervical spine at C3-4. Increasing sclerosis with loss of the normal endplate. These findin gs have progressed since 06/22/2020. Lung apices are clear. There is a small amount of secretions and debris within the upper esophagus. IMPRESSION: 1. High-grade stenosis involving the glottis and subglottic airway. Slitlike subglottic stenosis macho sures 4.2 mm at its maximum. Very similar to the prior study. 2. Tracheostomy remains in good position. 3. No complications associated with the tracheostomy and no adenopathy.
[2023-12-26] MEDS: iohexol 350 mg/mL 100 mL Btl IV (09:11)
== END 2023-12-26 08:37 | disposition home or self-care (01) ==
LOC: RAD 08:36
PROVIDERS: PCP Internal Medicine; Visit Provider Otolaryngology
DX: M54.2 Cervicalgia (principal); Q31.1 Congenital subglottic stenosis
CPT/HCPCS: 70491; Q9967

== ENCOUNTER 2024-04-10 10:18 | Oncology outpatient (recurring) (ONCR) | payer MEDICARE, MEDICAID, SELFPAY ==
[2024-04-10 11:55] LABS: Basophils # 0.1 10^3/uL (0.0-0.1); Basophils % 1.8 %; Eosinophils % 1.1 %; Hematocrit 38.9 % (36-47); Lymphocytes # 0.7 10^3/uL (0.8-4.8); Lymphocytes % 25.3 %; Mean Corpuscular HGB Conc 33.4 g/dL (30-55); Mean Corpuscular Volume 107.8 fl (85-98); Monocytes # 0.3 10^3/uL (0.2-0.9); Monocytes % 11.6 %; Neutrophils # 1.71 10^3/uL (1.8-7.7); Neutrophils % 59.8 %; Nucleated Red Blood Cells % 0 %; Platelet Count 128 10^3/cmm (157-399); Red Blood Count 3.61 10^6/uL (3.85-5.65); Red Cell Distribution Width 14.1 % (12.1-15.1); White Blood Count 2.85 10^3/uL (3.29-11.43)
[2024-04-10 12:00] LABS: LAB Peripheral Smear Sent for Review
[2024-04-10 12:32] LABS: Alanine Aminotransferase 18 U/L (0-33); Albumin Level 3.7 g/dL (3.5-5.2); Alkaline Phosphatase 111 U/L (35-105); Anion Gap 9.9 (5-19); Aspartate Amino Transferase 22 U/L (0-32); Blood Urea Nitrogen 25 mg/dL (6-20); Calcium 9.2 mg/dL (8.5-10.5); Carbon Dioxide 30 mmol/L (22-29); Chloride 105 mmol/L (98-107); Globulin 2.9 g/dL (1.3-4.6); Glomerular Filtration Rate 57.4 mL/min (90-130); Glucose 91 mg/dL (65-115); Osmolality Calculated 294 mOsm/kg (285-295); Potassium 4.9 mmol/L (3.5-5.1); Sodium 140 mmol/L (136-145); Total Bilirubin 0.3 mg/dL (0.15-1.2); Total Protein 6.6 g/dL (6.6-8.7)
[2024-04-10 14:20] LABS: Thyroid Stimulating Hormone 2.58 uIU/mL (0.27-4.20)
== END 2024-04-28 23:59 | disposition home or self-care (01) ==
PROVIDERS: PCP Internal Medicine; Visit Provider Internal Medicine Medical Oncology
DX: G30.0 Alzheimer's disease with early onset (principal); D72.819 Decreased white blood cell count, unspecified; F02.811 Dementia in other diseases classified elsewhere, unspecified severity, with agitation
CPT/HCPCS: 36415; 80053; 84443; 85025; 99205

== ENCOUNTER 2024-04-25 14:05 | Emergency (ER) | payer MEDICARE, MEDICAID, SELFPAY ==
[2024-04-25 14:06] VITALS: BP 115/77; PULSE 61; RESP 18; TEMP 36.4; O2SAT 98; BMI 37.6
--- NOTE | 2024-04-25 14:06 | XR_ITS ---
WS: [id number] Exam: XR chest 1V portable [id number] Date/Time of Exam: 04/25/2024 2:09 PM Reason For Exam: dyspnea Comparison 04/26/2023. The lungs are clear and fully inflated. Normal cardiomediastinal silhouette. No pleural effusions. A tracheostomy tube is in place. XR/XR chest 1V portable [id number] IMPRESSION: 1. No acute cardiopulmonary process.
[2024-04-25 14:17] VITALS: BP 115/77; PULSE 65; RESP 16; O2SAT 96
--- NOTE | 2024-04-25 14:18 | ED_ITS ---
HPI - General Adult 2 General: Chief complaint: General Medical Stated complaint: low o2 during rest Time Seen by Provider: 04/25/24 14:06 Source: patient Mode of arrival: ambulatory History of Present Illness: 58 yo female presents emergency room wit h a caregiver. Patient is moderately demented is currently on Seroquel and a week ago was started on Rexulti. She seems overly sedate the last several days. [facility] and they felt she was sedated also stated that her oxygen sat was 84% on room air when she first arrived here she is on supplemental oxygen she does sometimes use supplemental oxygen at night she does have a tracheostomy. We titrated her down and she is maintaining sats in the mid and upper 90s on room air. No report of fever sweats or chills. Caregivers report that her dementia is advanced significantly over the last 6 months. Onset (ago): day(s) Associated symptoms: Reports no associated symptoms and other; Deny chest pain, confusion, cough, diaphoresis, decreased appetite, dyspnea, fevers/chills, headache(s), malaise, nausea, rash, palpitations, seizures, short of breath, syncope, vomiting or weakness Treatments prior to arrival: none Review of Systems 2 General: Reports: ROS unobtainable due to mental status Const: Denies: malaise or diaphoresis Card: Denies: chest pain, palpitations or syncope Resp: Denies: dyspnea GI: Denies: nausea or vomiting : Denies: dysuria, urinary frequency or urinary urgency Musc: Denies: neck pain or back pain Skin/Breast: Denies: rash Neuro: Denies: headache(s) or confusion PFSH ED 2 PFSH: Medical History Psoriasis Insomnia Chronic GERD Gout Hypercholesteremia Sleep apnea Depression Coronary artery disease Hypothyroidism Stroke (~1997) due to contraception use Incontinence intermittent Trisomy 21 Alzheimer disease Surgical History Hx of tracheostomy (~1987) Hx of myringotomy (~02/24/16) with tube placement Hx of cholecystectomy (~2011) Hx of tubal ligation (~1999) Family History Other Unknown family medical history Social History Smoking and tobacco/nicotine status: never used tobacco/nicotine Second hand smoke exposure: No Alcohol intake: never Substance/Drug Use: never Additional social history: - Tobacco use: Never Alcohol use: Never Drug use: Never Physical Exam 2 Const: GENERAL APPEARANCE: cooperative and comfortable O RIENTATION/CONSCIOUSNESS: Yes awake HENMT: COMMON NORMALS: normocephalic, atraumatic and hearing grossly normal bilaterally HEAD & SCALP: normocephalic and atraumatic Resp: COMMON NORMALS: normal respiratory effort, No retractions, No use of accessory muscles and clear to auscultation bilaterally AUSCULTATION: clear to auscultation bilaterally Cardio: COMMON NORMALS: regular rate, regular rhythm and No murmurs present (Cardio) RATE: regular rate RHYTHM: regular rhythm GI: COMMON NORMALS: Soft to palpation and No hepatosplenomegaly present A USCULTATION: Yes normoactive bowel sounds PALPATION: Yes Soft to palpation, No Tenderness to palpation present (GI), No Guarding due to palpation present (GI) and Yes No hepatosplenomegaly present Extremity: COMMON NORMALS: normal to inspection, capillary refill normal, no clubbing, cyanosis or edema, no calf tenderness and no pedal edema Skin: COMMON NORMALS: no rashes or lesions noted GENERAL SKIN EXAM: no rashes or lesions noted Course 2 Vital Signs: Vital signs: Vital Signs Temperature 97.6 F 04/25/24 14:06 Pulse Rate 56 L 04/25/24 18:28 Respiratory Rate 17 04/25/24 18:28 Blood Pressure 141/94 04/25/24 18:28 Pulse Oximetry 95 04/25/24 18:28 Oxygen Delivery Me thod Room Air 04/25/24 15:45 Oxygen Flow Rate 2 04/25/24 14:17 MDM - General Adult Medical Decision Making Oxygen sats have maintained normal. Return workup is complete patient is more awake and alert sitting up in bed and spontaneous. I suspect this is due to her medications. Her oxygen sat has been good she had no other symptoms they have noticed with the addition of the Rexulti she has been more warm sedated. Dogmatic caregiver the plan from psychiatry and he will see to titrate up on the Rexulti and titrate down on them Seroquel. Encouraged him not to change any doses of medications for now they were scheduled to go up on the Rexulti but they should hold off on this until they contact psychiatry and see if they want to make decrease in the Seroquel before going up any further on the Rexulti. I suspect her sedation is due to the combination of the 2 at this point. Recheck if has any worsening or change problems. Medical Records I reviewed the patient's medical records. Lab Data I reviewed the patient's lab results. 04/25/24 13:50 04/25/24 13:50 Radiology Impressions Chest X-Ray 04/25/24 14:06 IMPRESSION: 1. No acute cardiopulmonary process. Laboratory Results WBC 3.29 10^3/uL (3.29-11.43) 04/25/24 13:50 RBC 3.86 10^6/uL (3.85-5.65) 04/25/24 13:50 Hgb 13.80 g/dL (11.27-16.99) 04/25/24 13:50 Hct 41.1 % (36-47) 04/25/24 13:50 MCV 106.5 fl (85-98) H 04/25/24 13:50 MCH 35.8 pg (27-33) H 04/25/24 13:50 MCHC 33.6 g/dL (30-55) 04/25/24 13:50 RDW 14.3 % (12.1-15.1) 04/25/24 13:50 Plt Count 135 10^3/cmm (157-399) L 04/25/24 13:50 MPV 9.9 fL (7.4-10.4) 04/25/24 13:50 Neut % (Auto) 56.9 % 04/25/24 13:50 Lymph % (Auto) 30.1 % 04/25/24 13:50 [place] % (Auto) 10.9 % 04/25/24 13:50 Eos % (Auto) 0.6 % 04/25/24 13:50 Baso % (Auto) 1.2 % 04/25/24 13:50 Neut # (Auto) 1.87 10^3/uL (1.8-7.7) 04/25/24 13:50 Lymph # (Auto) 1.0 10^3/uL (0.8-4.8) 04/25/24 13:50 [place] # (Auto) 0.4 10^3/uL (0.2-0.9) 04/25/24 13:50 Eos # (Auto) 0.0 10^3/uL (0.0-0.8) 04/25/24 13:50 Baso # (Auto) 0.0 10^3/uL (0.0-0.1) 04/25/24 13:50 Nucleated RBC % (auto) 0 % 04/25/24 13:50 Nucleated RBCs # 0.0 /100WBC 04/25/24 13:50 Specimen Type Arterial 04/25/24 14:15 Sample Site Brachial, left 04/25/24 14:15 ABG pH 7.38 (7.35-7.45) 04/25/24 14:15 ABG pCO2 48.0 mmHg (35-45) H 04/25/24 14:15 ABG pO2 101.0 mmHg (80.0-100.0) H 04/25/24 14:15 ABG PO2/FiO2 Ratio 360 04/25/24 14:15 ABG HCO3 28.5 mmol/L (22-26) H 04/25/24 14:15 ABG O2 Saturation 98.5 04/25/24 14:15 ABG Base Excess 2.7 mmol/L (-2.0-2.0) H 04/25/24 14:15 Adal Test Pos 04/25/24 14:15 A-a O2 Gradient 5.0 mmHg (5-10) 04/25/24 14:15 Hematocrit 41.2 % (37-47) 04/25/24 14:15 Hgb O2 Saturation 96.9 % (95-100) 04/25/24 14:15 Carboxyhemoglobin 1.3 %THgb (0.4-20.1) 04/25/24 14:15 Methemoglobin 0.3 % (0.4-1.5) L 04/25/24 14:15 Total Hemoglobin 13.5 g/dL (12-16) 04/25/24 14:15 Sodium 143.0 mmol/L (131-143) 04/25/24 14:15 Potassium 4.2 mmol/L (3.5-5.0) 04/25/24 14:15 Glucose 118.0 mg/dL (70-115) H 04/25/24 14:15 Ionized Calcium 1.3 mmol/L (1.1-1.4) 04/25/24 14:15 O2 Delivery Device Trach collar 04/25/24 14:15 O2 Liters/Min 2.0 % 04/25/24 14:15 FiO2 28.0 % 04/25/24 14:15 Computational Scientist ID Cak 04/25/24 14:15 Sodium 140 mmol/L (136-145) 04/25/24 13:50 Potassium 4.3 mmol/L (3.5-5.1) 04/25/24 13:50 Chloride 103 mmol/L (98-107) 04/25/24 13:50 Carbon Dioxide 29 mmol/L (22-29) 04/25/24 13:50 Anion Gap 12.3 (5-19) 04/25/24 13:50 BUN 31 mg/dL (6-20) H 04/25/24 13:50 Creatinine 1.0 mg/dL (0.5-0.9) H 04/25/24 13:50 GFR Calculation 57.4 mL/min (90-130) L 04/25/24 13:50 Glucose 115 mg/dL (65-115) 04/25/24 13:50 Calculated Osmolality 297 mOsm/kg (285-295) H 04/25/24 13:50 Calcium 9.5 mg/dL (8.5-10.5) 04/25/24 13:50 Total Bilirubin 0.7 mg/dL (0.15-1.2) 04/25/24 13:50 AST 26 U/L (0-32) 04/25/24 13:50 ALT 19 U/L (0-33) 04/25/24 13:50 Alkaline Phosphatase 116 U/L (35-105) H 04/25/24 13:50 Troponin T Baseline 9 ng/L (0-10) 04/25/24 13:50 Troponin T 120 Minute 8.45 ng/L (0-10) 04/25/24 16:57 Delta Troponin T -0.55 ABS# (0-10) L 04/25/24 16:57 Total Protein 7.5 g/dL (6.6-8.7) 04/25/24 13:50 Albumin 4.1 g/dL (3.5-5.2) 04/25/24 13:50 Globulin 3.4 g/dL (1.3-4.6) 04/25/24 13:50 Urine Color Yellow (Yellow) 04/25/24 16:11 Urine Appearance Clear (CLEAR) 04/25/24 16:11 Urine pH 7 (5-7) 04/25/24 16:11 Ur Specific [place] 1.010 (1.005-1.030) 04/25/24 16:11 Urine Protein Neg (Negative) 04/25/24 16:11 Urine Glucose (UA) Norm (Normal) 04/25/24 16:11 Urine Ketones Negative (Negative) 04/25/24 16:11 Urine Blood Trace (Negative) H 04/25/24 16:11 Urine Nitrate Negative 04/25/24 16:11 Urine Bilirubin Neg (Negative) 04/25/24 16:11 Urine Urobilinogen Norm mg/dL (Negative) 04/25/24 16:11 Ur Leukocyte Esterase Negative (Negative) 04/25/24 16:11 Urine RBC None /hpf (0-2) 04/25/24 16:11 Urine WBC None /hpf (0-5) 04/25/24 16:11 Ur Squamous Epith Cells 0-4 /hpf (0-5) H 04/25/24 16:11 Amorphous Sediment Not Reportable 04/25/24 16:11 Urine Bacteria None /hpf (NONE) 04/25/24 16:11 All radiology interpretation(s) finalized by discharge Discharge Plan Discharge Patient Disposition: Home Clinical Impression: Medication side effect, Alzheimer disease, Trisomy 21 Condition: Stable Prescriptions: No Action artifi.tears(hypromellose)(PF) 0.3 % drops 1 drop ophthalmic (eye) Q6H PRN (Reason: Dry Eyes) acetaminophen [Tylenol] 325 mg capsule 650 mg PO Q4H PRN (Reason: Pain) loperamide 2 mg capsule See Rx Instructions .ROUTE .COMPLEX Rx Instructions: 4MG PO AFTER 1ST LOOSE STOOL FOLLOWED BY 2MG AFTER EACH LOOSE STOOL DIRECTED triamcinolone acetonide 0.1 % cream See Rx Instructions .ROUTE .COMPLEX Rx Instructions: APPLY TO RASH ON ARMS AND LEGS EVERY 12 HOURS NEEDED hydrocortisone 2.5 % cream See Rx Instructions .ROUTE .COMPLEX Rx Instructions: APPLY TO AFFECTED AREA EVERY 8 HOURS NEEDED FOR RASH (DME) oxygen-air delivery systems Device See Rx Instructions .ROUTE .MEDSUPPLY Qty: 1 Rx Instructions: 3 liters at night (DME) Portable Oxygen Concentrator See Rx Instructions .Route .MEDSUPPLY Rx Instructions: 3 liters at bedtime to take while she[place] at camp May 02 through May 07 albuterol sulfate 2.5 mg /3 mL (0.083 %) solution for nebulization 2.5 mg inhalation Q6H PRN (Reason: shortness of breath or wheezing) diclofenac sodium [Voltaren Arthritis Pain] 1 % gel 4 g topical QID Qty: 100 4RF Rx Instructions: apply to single knee, ankle, foot; for foot includes sole/toes/top of foot multivitamin Tablet 1 tab PO DAILY Patient Comments: Tab-A-Lenin citalopram 20 mg tablet PO quetiapine [Seroquel] 50 mg tablet 50 mg PO BID Qty: 60 5RF quetiapine 100 mg tablet 100 mg PO DAILY Rx Instructions: TAKE ONE TABLET BY MOUTH EVERY NIGHT AT BEDTIME FOR AGITATION Refresh Optive 1-0.9 % drops,gel 1 drp ophthalmic (eye) DAILY Rx Instructions: INSTILL ONE DROP INTO EACH EYE EVERY NIGHT AT BEDTIME FOR EYE IRRITATION Icy Hot Pain Relieving 2.5 % gel 1 applic topical Q8H artificial tear(qhggd-mwz-txo) 0.1-0.3-0.2 % drops 1 drp ophthalmic (eye) TID PRN ondansetron HCl [Zofran] 4 mg tablet 4 mg PO Q6H PRN (Reason: nausea and vomiting) Qty: 30 0RF miconazole nitrate 2 % powder See Rx Instructions topical DAILY Qty: 85 3RF Rx Instructions: 1 application to belly fold topical daily as needed fluocinonide 0.05 % cream See Rx Instructions .ROUTE .COMPLEX Qty: 30 0RF Dose Instruction: Mix with equal part Clotosc (coal tar & Salicyclic Acid) THEN APPLY TO plaque EVERY TWELVE HOURS NEEDED ON thick AREAS of psoriasis Rx Instructions: Mix with equal part Clotosc (coal tar & Salicyclic Acid) THEN APPLY TO plaque EVERY TWELVE HOURS NEEDED ON thick AREAS of psoriasis dextromethorphan-guaifenesin [Tussin DM] 10-100 mg/5 mL syrup See Rx Instructions .ROUTE .COMPLEX Qty: 237 12RF Dose Instruction: give 10ML BY MOUTH EVERY 4 HOURS NEEDED FOR cough AND congestion Rx Instructions: give 10ML BY MOUTH EVERY 4 HOURS NEEDED FOR cough AND congestion ketoconazole 2 % shampoo See Rx Instructions .ROUTE .COMPLEX Qty: 120 6RF Rx Instructions: APPLY topically 2-3 TIMES A WEEK ALTERNATING WITH DERMAZINC omeprazole 40 mg capsule,delayed release(DR/EC) 40 mg PO DAILY@08 Qty: 90 3RF atorvastatin 10 mg tablet 10 mg PO DAILY@20 Qty: 30 6RF simethicone [Gas Relief Extra Strength] 125 mg capsule See Rx Instructions .ROUTE .COMPLEX Qty: 20 5RF Dose Instruction: TAKE ONE CAPSULE BY MOUTH EVERY 6 HOURS NEEDED FOR flatulence Rx Instructions: TAKE ONE CAPSULE BY MOUTH EVERY 6 HOURS NEEDED FOR flatulence ketoconazole 2 % cream 1 applic topical BID Qty: 60 3RF Rx Instructions: Apply twice daily to abdomen and buttocks for 4 weeks then as needed for flares allopurinol 100 mg tablet 200 mg PO DAILY@08 Qty: 60 3RF levothyroxine 112 mcg tablet 112 mcg PO DAILY@07 Qty: 30 3RF fluticasone propionate 50 mcg/actuation spray,suspension See Rx Instructions .ROUTE .COMPLEX Qty: 16 5RF Dose Instruction: instill two SPRAYS into each nostril ONCE daily FOR seasonal allergies Rx Instructions: instill two SPRAYS into each nostril ONCE daily FOR seasonal allergies rivastigmine [Exelon Patch] 4.6 mg/24 hour patch 24 hour See Rx Instructions .ROUTE .COMPLEX Qty: 30 4RF Dose Instruction: APPLY 1 PATCH topically DAILY AT 8am Rx Instructions: APPLY 1 PATCH topically DAILY AT 8am ammonium lactate 12 % Lotion See Rx Instructions .ROUTE .COMPLEX Rx Instructions: APPLY TOPICALLY TO AFFECTED AREA BID. CeraVe Cream See Rx Instructions .ROUTE .COMPLEX Rx Instructions: APPLY TO HANDS BID AT LEAST AND MORE IF NEEDED FOR DRY SKIN Triple Antibiotic 3.5mg-400 unit- 5,000 unit/gram Ointment 1 applic TOPICAL Q8H PRN (Reason: Rash) DermaZinc Shampoo 2 % Shampoo See Rx Instructions .ROUTE .COMPLEX Rx Instructions: APPLY topically THREE TIMES A WEEK Pepto-Bismol 262 mg/15 mL Suspension 524 mg PO Q4H PRN (Reason: Diarrhea) Fluo/Salic/[place] Tar Cream See Rx Instructions .ROUTE .COMPLEX Rx Instructions: apply every 12 hours if needed on thick areas of psoriasis albuterol sulfate 90 mcg/actuation HFA aerosol inhaler 2 inh inhalation Q6H PRN (Reason: shortness of breath or wheezing) Qty: 8.5 0RF Discharge Orders: Discharge ED (Routine); Ordered 04/25/24 Ordered By: Khurram Sapp Referrals: Nichole Corey MD [Primary Care Provider] - Discharge Diet: Usual diet Discharge Activity: Resume usual activity Patient Instructions: Opioid Safety, Pain Management Activity Restrictions/Additional Instructions: Thank you for choosing [facility] for your healthcare needs today. It is very important that you follow up as instructed or that you return to the Emergency Department should you have concerns or if your condition changes or worsens in any way. You were seen today for complaint of low oxygen saturation. Your oxygen saturation on room air was normal while you are in the emergency room. Suspect the sedation is coming from the combination of Rexulti and Seroquel. Do not increase the dose of Rexulti as planned until you follow-up with your psychiatrist. If the plan is for them to titrate off of the Seroquel contact him for recommended dosage adjustments. Continue other medications unchanged. Coding Level of Care Code ED Retail Field Merchandiser for Nichelle Correia
[2024-04-25 14:26] LABS: ABG PH Result 7.38 (7.35-7.45); Arterial Blood Gas Hematocrit 41.2 % (37-47); Base Excess ABG 2.7 mmol/L (-2.0-2.0); Blood Gas Allen Test Pos; Blood Gas Operator Identificat CAK; Blood Gas Sample Site Brachial, left; Blood Gas Sample Type Arterial; Carboxyhemoglobin 1.3 %THgb (0.4-20.1); HCO3 ABG 28.5 mmol/L (22-26); HGB O2 Sat 96.9 % (95-100); Ionized Calcium Level - ABG 1.3 mmol/L (1.1-1.4); Methemoglobin 0.3 % (0.4-1.5); Oxygen Device TRACH COLLAR; Oxygen Saturation ABG 98.5; PO2 FiO2 Ratio Arterial Blood 360; Potassium Level - ABG 4.2 mmol/L (3.5-5.0); Total Hemoglobin 13.5 g/dL (12-16)
[2024-04-25 14:28] LABS: Basophils % 1.2 %; Eosinophils % 0.6 %; Hematocrit 41.1 % (36-47); Lymphocytes % 30.1 %; Mean Corpuscular HGB Conc 33.6 g/dL (30-55); Mean Corpuscular Hemoglobin 35.8 pg (27-33); Mean Corpuscular Volume 106.5 fl (85-98); Mean Platelet Volume 9.9 fL (7.4-10.4); Monocytes # 0.4 10^3/uL (0.2-0.9); Monocytes % 10.9 %; Neutrophils # 1.87 10^3/uL (1.8-7.7); Neutrophils % 56.9 %; Nucleated Red Blood Cells % 0 %; Platelet Count 135 10^3/cmm (157-399); Red Blood Count 3.86 10^6/uL (3.85-5.65); Red Cell Distribution Width 14.3 % (12.1-15.1); White Blood Count 3.29 10^3/uL (3.29-11.43)
--- NOTE | 2024-04-25 14:49 | ECG_ITS ---
[facility] Test Date: 2024-04-25 Pat Name: Alla Milton Department: Room: Gender: Female Veterinary Medicine Scientist: : 1965 Requested By: Khurram Aguayo Order Number: [id number] Ab MD: Latrice Delgadillo M.D. Measurements Intervals [place] Rate: 55 P: 59 GA: 178 QRS: 33 QRSD: 89 T: 39 QT: 426 QTc: 408 Interpretive Statements SINUS BRADYCARDIA Compared to ECG 12/31/2020 07:53:15 No significant changes Electronically Signed On 04-26-2024 20:36:25 CDT by Latrice Delgadillo M.D. [id number]
[2024-04-25 14:50] LABS: Alanine Aminotransferase 19 U/L (0-33); Albumin Level 4.1 g/dL (3.5-5.2); Alkaline Phosphatase 116 U/L (35-105); Anion Gap 12.3 (5-19); Aspartate Amino Transferase 26 U/L (0-32); Blood Urea Nitrogen 31 mg/dL (6-20); Calcium 9.5 mg/dL (8.5-10.5); Carbon Dioxide 29 mmol/L (22-29); Chloride 103 mmol/L (98-107); Globulin 3.4 g/dL (1.3-4.6); Glomerular Filtration Rate 57.4 mL/min (90-130); Glucose 115 mg/dL (65-115); Osmolality Calculated 297 mOsm/kg (285-295); Potassium 4.3 mmol/L (3.5-5.1); Sodium 140 mmol/L (136-145); Total Bilirubin 0.7 mg/dL (0.15-1.2); Total Protein 7.5 g/dL (6.6-8.7)
[2024-04-25 14:52] LABS: Troponin(5th) Baseline 9 ng/L (0-10)
--- NOTE | 2024-04-25 15:02 | ECG_ITS ---
[facility] Test Date: 2024-04-25 Pat Name: Alla Milton Department: Room: Gender: Female Senior Support Analyst: : 1965 Requested By: Khurram Aguayo Order Number: [id number] Ab MD: Latrice Delgadillo M.D. Measurements Intervals [place] Rate: 59 P: 64 CT: 176 QRS: 27 QRSD: 91 T: 29 QT: 426 QTc: 424 Interpretive Statements SINUS BRADYCARDIA Compared to ECG 04/25/2024 14:49:32 No significant changes Electronically Signed On 04-26-2024 20:46:18 CDT by Latrice Delgadillo M.D. [id number]
[2024-04-25 15:45] VITALS: BP 123/72; PULSE 50; RESP 12; O2SAT 95
[2024-04-25 16:12] VITALS: BP 123/72; PULSE 51; RESP 15
[2024-04-25 16:20] LABS: Urine Appearance Clear (CLEAR); Urine Color Yellow (Yellow); pH Urine 7 (5-7)
[2024-04-25 16:21] LABS: Add Urine Microscopic? YES; Bilirubin Urine Neg (Negative); Blood Urine Trace (Negative); Glucose Urine UA Norm (Normal); Ketones Urine Negative (Negative); Leukocyte Esterase Urine Negative (Negative); Nitrate Urine Negative; Protein Urine Neg (Negative); Urobilinogen Urine Norm (Negative)
[2024-04-25 16:29] LABS: Squamous Epithelial Cell Urine 0-4 /hpf (0-5)
[2024-04-25 17:34] LABS: Troponin 5 2HR 8.45 ng/L (0-10); Troponin 5 2HR Delta -0.55 ABS# (0-10)
[2024-04-25 18:28] VITALS: BP 141/94; PULSE 56; RESP 17; O2SAT 95
== END 2024-04-25 17:57 | disposition home or self-care (01) ==
PROVIDERS: Emergency Provider Family Medicine; PCP Internal Medicine
DX: R09.02 Hypoxemia (principal); T43.595A Adverse effect of other antipsychotics and neuroleptics, initial encounter; G30.9 Alzheimer's disease, unspecified; F02.80 Dementia in other diseases classified elsewhere, unspecified severity, without behavioral disturbance, psychotic disturbance, mood disturbance, and anxiety; Q90.9 Down syndrome, unspecified; I25.10 Atherosclerotic heart disease of native coronary artery without angina pectoris; Z86.73 Personal history of transient ischemic attack (TIA), and cerebral infarction without residual deficits; Z93.0 Tracheostomy status
CPT/HCPCS: 36415; 36600; 71045; 80051; 80053; 81001; 82330; 82805; 84484; 85025; 93005; 99285

== ENCOUNTER → 2024-05-17 08:00 | Outpatient (BNVA) | payer MEDICARE, MEDICAID, SELFPAY | PROVIDERS: PCP Internal Medicine; Visit Provider Specialist | DX: G30.9 Alzheimer's disease, unspecified (principal); F02.80 Dementia in other diseases classified elsewhere, unspecified severity, without behavioral disturbance, psychotic disturbance, mood disturbance, and anxiety | CPT/HCPCS: 99213 ==

== ENCOUNTER 2024-06-04 12:22 | Oncology outpatient (recurring) (ONCR) | payer MEDICARE, MEDICAID, SELFPAY ==
[2024-06-04 12:31] LABS: Basophils % 1.1 %; Eosinophils % 0.8 %; Hematocrit 40.6 % (36-47); Lymphocytes # 0.8 10^3/uL (0.8-4.8); Lymphocytes % 22.5 %; Mean Corpuscular HGB Conc 33.5 g/dL (30-55); Mean Corpuscular Hemoglobin 35.9 pg (27-33); Mean Corpuscular Volume 107.1 fl (85-98); Mean Platelet Volume 9.8 fL (7.4-10.4); Monocytes # 0.3 10^3/uL (0.2-0.9); Neutrophils # 2.36 10^3/uL (1.8-7.7); Neutrophils % 66.3 %; Nucleated Red Blood Cells % 0 %; Platelet Count 133 10^3/cmm (157-399); Red Blood Count 3.79 10^6/uL (3.85-5.65); Red Cell Distribution Width 13.5 % (12.1-15.1); White Blood Count 3.56 10^3/uL (3.29-11.43)
[2024-06-04 12:51] LABS: Alanine Aminotransferase 24 U/L (0-33); Albumin Level 3.8 g/dL (3.5-5.2); Alkaline Phosphatase 115 U/L (35-105); Anion Gap 11.6 (5-19); Aspartate Amino Transferase 26 U/L (0-32); Blood Urea Nitrogen 24 mg/dL (6-20); Calcium 9.1 mg/dL (8.5-10.5); Carbon Dioxide 29 mmol/L (22-29); Chloride 105 mmol/L (98-107); Globulin 3.2 g/dL (1.3-4.6); Glomerular Filtration Rate 51.4 mL/min (90-130); Glucose 90 mg/dL (65-115); Lactate Dehydrogenase 211 U/L (135-214); Osmolality Calculated 296 mOsm/kg (285-295); Potassium 4.6 mmol/L (3.5-5.1); Sodium 141 mmol/L (136-145); Total Bilirubin 0.3 mg/dL (0.15-1.2)
== END 2024-06-29 23:55 | disposition home or self-care (01) ==
PROVIDERS: PCP Internal Medicine; Visit Provider Internal Medicine Medical Oncology
DX: Z53.9 Procedure and treatment not carried out, unspecified reason (principal); D72.819 Decreased white blood cell count, unspecified; Q90.9 Down syndrome, unspecified
CPT/HCPCS: 36415; 80053; 83615; 85025; 99213

== ENCOUNTER 2024-06-15 11:23 | Emergency (ER) | payer MEDICARE, MEDICAID, SELFPAY ==
[2024-06-15 11:36] VITALS: BMI 37.0
[2024-06-15 11:48] VITALS: BP 127/82; PULSE 80; RESP 16; TEMP 36.8; O2SAT 92
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
[2024-06-15 14:36] VITALS: BP 126/85; PULSE 63; O2SAT 94
[2024-06-15 15:20] VITALS: BP 126/85; PULSE 63; RESP 16; TEMP 36.8; O2SAT 94
== END 2024-06-15 15:19 | disposition home or self-care (01) ==
PROVIDERS: Emergency Provider Emergency Medicine; PCP Internal Medicine
DX: S30.1XXA Contusion of abdominal wall, initial encounter (principal); I25.10 Atherosclerotic heart disease of native coronary artery without angina pectoris; Z86.73 Personal history of transient ischemic attack (TIA), and cerebral infarction without residual deficits; G30.9 Alzheimer's disease, unspecified; F02.80 Dementia in other diseases classified elsewhere, unspecified severity, without behavioral disturbance, psychotic disturbance, mood disturbance, and anxiety; Q90.9 Down syndrome, unspecified
CPT/HCPCS: 74022; 99283